=== PATIENT | female | born 1930 | race American Indian/Alaskan Native ===

== ENCOUNTER 2017-03-25 10:43 | Day surgery (SDC) | payer MEDICARE ==
[~2017-03-25 10:43] MED LIST: NACL 0.9% 1000 ML 1,000 ML ONE
--- NOTE | 2017-03-25 11:27 | Anesthesia Consultation ---
Anesthesia Consult and Med Hx Date of service: 03/25/17 - Airway Anesthetic Teeth Evaluation: Poor - Pulmonary Exam CTA: Yes - Cardiac Exam Cardiac Exam: RRR - Pre-Operative Health Status ASA Pre-Surgery Classification: ASA4 Proposed Anesthetic Plan: MAC - Pre-Anesthesia Comment Pre-Anesthesia Comments: Only a few remaining teeth. None loose per daughter. Airway difficult to evaluate due to patients dementia. - Pulmonary Hx Smoking: No Hx Asthma: No COPD: No Hx Sleep Apnea: No (reports snoring) - Cardiovascular System Hx Hypertension: Yes Hx Coronary Artery Disease: No Hx Heart Attack/AMI: (Pt. denies but has LBBB on EKG from today. ) - Central Nervous System Hx Neuromuscular Disorder: No (AMS/delirium believed secondary to UTI) CVA: Yes Hx Back Pain: Yes Hx Psychiatric Problems: No (AMS/delirium secondary to ?UTI) - Gastrointestinal Hx Ulcer: No (evaluating for hematemesis) - Endocrine Hx Renal Disease: No Hx Liver Disease: No Hx Non-Insulin Dependent Diabetes: No - Hematic Hx Anemia: No - Other Systems Hx Alcohol Use: Yes - Additional Comments Anesthesia Medical History Comments: Medical recorg indicates non stemi in 2015. EF at that time was 35-40
--- NOTE | 2017-03-25 11:28 | Anesthesia Day of Surgery ---
Anesthesia Day of Surgery - Day of Surgery Patient Examined: Yes Patient H&P Reviewed: Yes Patient is NPO: Yes
[2017-03-25] MEDS ORDERED: NACL 0.9% 1000 ML 1,000 ML IV SCH (13:00)
[2017-03-25] MEDS ORDERED: DIPRIVAN 10 MG/ML IV ONE (14:17)
[2017-03-25] MEDS ORDERED: AMIDATE IV ONE (14:17)
[2017-03-25] MEDS ORDERED: ANCEF/STERILE WATER 2 GM/20 ML 2 GM/20 ML SYRINGE IV ONE (14:32)
[2017-03-25] MEDS ORDERED: TRIPLE ANTIBIOTIC TP ONE ×2 (15:03→15:07)
[2017-03-25 16:04] VITALS: BP 175/47
--- NOTE | 2017-03-25 16:11 | Operative Report ---
Operative Report Operative Report: Operative Report: Date of procedure: 10/26/2016 Procedure: Esophagogastroduodenoscopy with percutaneous endoscopic gastrostomy tube placement Attending physician: Casimiro Moody MD Retaining Room Cutter: Casimiro Moody MD Indication: Patient is an 87-year-old female who presented with a history of dementia altered mental status poor oral intake and weight loss. Patient is moderately malnourished. An upper endoscopy is done to place a percutaneous endoscopic gastrostomy tube for enteral feeding and administration of medications. Consent: Informed consent was obtained after advising the patients family regarding nature of this procedure, its indications, potential benefits as well as possible complications including but not limited to bleeding perforation and adverse reaction to medication, infection as well as other cardiopulmonary complications. An informed written and verbal consent was then obtained after due opportunity was provided for questions and answers. Monitoring: Patient was monitored continuously with pulse oximetry and electrocardiographic recordings as well as blood pressure recordings. Vital signs remained stable throughout this procedure with no untoward events. Preoperative assessment: Patient was assessed immediately prior to this procedure for capacity to tolerate monitored anesthesia care and moderate sedation as well as general anesthesia. Patient's ASA classification is 3, Mallampati class is 2, Hyomental distance is 3. Instrument: [email or web address] video endoscope. 20 [place] percutaneous endoscopic gastrostomy tube kit Medications: Propofol given intravenously in divided doses. For details please refer to anesthesia records. Ancef 1 g given intravenously immediately prior to beginning of procedure 1% lidocaine for local infiltration of the skin. Description of procedure: Patient was placed in a supine position after achieving sedation, the endoscope was introduced into the esophagus under direct vision. It was then advanced beyond the esophagus into the stomach and then beyond the stomach into the duodenum and to the second portion of the duodenum. It was subsequently withdrawn with careful inspection of all mucosal surfaces with the following findings. Subsequently, a precise location for the placement of the percutaneous endoscopic gastrostomy tube was identified using direct light transillumination and one-to-one finger indentation. Following this, a 20 [place] percutaneous endoscopic gastrostomy tube was successfully placed using the Ponsky pull-through method. The following endoscopic findings were noted. Findings: Esophagus was normal. There was mild erythema in the gastric antrum. A 20 [place] percutaneous endoscopic gastrostomy tube was successfully placed. The duodenum was normal to the second portion. Impression: Esophagogastroduodenoscopy with successful placement of a 20 [place] percutaneous endoscopic gastrostomy tube. Plan: The tube site is currently at 2.8 cm. It should be cleaned daily with Betadine and peroxide. Triple Antibiotic should be applied daily to the site with dry gauze dressing a for at least 2-3 weeks. The tube site should be carefully inspected daily for any redness or discharge. The tube should be flushed with 100 mL of water every 6 hours. The tube should also be flushed additionally after administration medications or after completing a feeding session. Tube may be used for enteral feeding after 6 hours. The tube however may be used immediately for administration of medications. If the tube is accidentally dislodged, a cerner analyst should be notified immediately. After 6 hours, the tube may be used for enteral feeding. The advice however and recommendation is to begin tube feeding at a slow rate of 30 mL per hour and gradually increase as may be instructed after 8 hours. Residuals from the feeding tube should be checked every 3 hours for at least 24-36 hours. If patient tolerates feeding, his feeding volume should be optimized as may advised by the dietitian. If patient has high residuals, then caution should be used in increasing the feeding rate to avoid aspiration. The head of the bed should be kept at 30 always.
--- NOTE | 2017-03-25 16:12 | Discharge Summary ---
Short Stay Discharge Plan Activity: fall precautions Weight Bearing Status: Non-Weight Bearing Diet: per dietitian instruction, other (Peg tube feedings) Additional Instructions: Post Sedation D/C Instructions When you return home you may resume your regular diet unless otherwise directed. -Go directly home from the hospital and rest quietly. You may resume normal activities tomorrow. -Do NOT drive, return to work, operate any machinery or make any important personal or business decisions today. -Do NOT drink any alcohol or take nerve or sleeping drugs. They add to the effects of the medicine still present in your body. Follow up with: CAPRI ARMENTA MD [Primary Care Provider] - 7 Days
--- NOTE | 2017-03-25 16:49 | Post Anesthesia Evaluation ---
- Post Anesthesia Evaluation Patient Participated: Yes Airway Patent: Yes Stable Respiratory Function: Yes Nausea/Vomiting: No Temp > 96.8F: Yes Pain Manageable: Yes Adequeate Hydration: Yes Anesthesia Complications: No Block Receding Appropriately: Not Applicable Patient on Ventilator: No
[2017-03-25] MEDS ORDERED: WATER FOR IRRIG STERILE IR ONE (17:17)
== END 2017-03-25 10:44 | disposition home or self-care (01) ==
LOC: GIO 10:43
PROVIDERS: ATTEND Internal Medicine Gastroenterology
DX: E44.0 Moderate protein-calorie malnutrition (principal); K31.89 Other diseases of stomach and duodenum; F03.90 Unspecified dementia, unspecified severity, without behavioral disturbance, psychotic disturbance, mood disturbance, and anxiety; F10.21 Alcohol dependence, in remission; I25.2 Old myocardial infarction; I42.9 Cardiomyopathy, unspecified; I48.92 Unspecified atrial flutter; I27.2 Other secondary pulmonary hypertension; K21.9 Gastro-esophageal reflux disease without esophagitis; F32.9 Major depressive disorder, single episode, unspecified; F41.9 Anxiety disorder, unspecified; I11.0 Hypertensive heart disease with heart failure; I50.9 Heart failure, unspecified; I44.7 Left bundle-branch block, unspecified; D64.9 Anemia, unspecified; E78.00 Pure hypercholesterolemia, unspecified; Z86.73 Personal history of transient ischemic attack (TIA), and cerebral infarction without residual deficits; Z79.82 Long term (current) use of aspirin; Z79.899 Other long term (current) drug therapy
CPT/HCPCS: 43246; J0690; J2704; J7030; A6250

== ENCOUNTER 2017-05-12 02:04 | Inpatient (IN) | payer MEDICARE ==
[2017-05-12] MEDS ORDERED: NACL 0.9% 1000 ML 1,000 ML IV ONE ×2 (03:23→05:16)
[2017-05-12] MEDS ORDERED: ZOFRAN IV ONE (03:24)
--- NOTE | 2017-05-12 03:31 | Emergency Department Report ---
ED GI Bleed HPI - General Chief complaint: GI Bleed Stated complaint: VOMITING/AMS Time Seen by Provider: 05/12/17 03:09 Source: EMS Mode of arrival: Stretcher Limitations: Physical Limitation - History of Present Illness Initial comments: Patient is a 87 years old female senior living patient sent for a coffee ground emesis just before arrival to the ER. Patient past medical history include coronary artery disease hemiplegia history of atrial flutter cardiomyopathy. Patient is a DO NOT RESUSCITATE, DO NOT RESUSCITATE is in the patient senior living record. MD complaint: coffee ground emesis Radiation: none - Related Data Home Medications Medication Instructions Recorded Confirmed Last Taken FLUoxetine [PROzac] 20 mg PO QDAY 03/30/14 02/20/15 04/14/14 Oxybutynin [Ditropan] 5 mg PO BID 03/30/14 02/20/15 04/14/14 Sennosides [Senna Lax] 8.6 mg PO DAILY 03/30/14 02/20/15 Unknown clonazePAM [KlonoPIN] 0.5 mg PO BID PRN 03/30/14 02/20/15 04/14/14 Omeprazole [PriLOSEC] 40 mg PO DAILY 04/15/14 02/20/15 04/15/14 Previous Rx's Medication Instructions Recorded Last Taken Type Aspirin EC [Aspirin Enteric Coated 81 mg PO QDAY #30 tablet 04/18/14 Unknown Rx TAB] Simvastatin [Zocor TAB] 10 mg PO QHS #30 tablet 04/18/14 Unknown Rx ISOSORBIDE MONOnitrate [Imdur ER] 60 mg PO QDAY tablet 02/25/15 Unknown Rx Lisinopril [Zestril TAB] 20 mg PO BID #60 tablet 02/25/15 Unknown Rx Simvastatin [Zocor] 5 mg PO QHS #30 tablet 02/25/15 Unknown Rx Allergies Allergy/AdvReac Type Severity Reaction Status Date / Time No Known Allergies Allergy Unverified 03/30/14 08:30 ED Review of Systems ROS: Stated complaint: VOMITING/AMS Other details as noted in HPI Comment: Unobtainable due to pts medical conditions ED Past Medical Hx - Past Medical History Previous Medical History?: Yes Hx Hypertension: Yes Hx Heart Attack/AMI: (NSTEMI) Hx Congestive Heart Failure: Yes (SYSTOLIC) Hx GERD: Yes Hx Liver Disease: No Hx Renal Disease: No Hx Psychiatric Treatment: Yes (alzhiemers) Hx Asthma: No Hx COPD: No Hx Dementia: Yes Additional medical history: alzheimers - Surgical History Past Surgical History?: Yes Additional Surgical History: lumbar Back surgery. g-tube palcement - Social History Smoking Status: Unknown if ever smoked Substance Use Type: None - Medications Home Medications: Home Medications Medication Instructions Recorded Confirmed Last Taken Type FLUoxetine [PROzac] 20 mg PO QDAY 03/30/14 02/20/15 04/14/14 History Oxybutynin [Ditropan] 5 mg PO BID 03/30/14 02/20/15 04/14/14 History Sennosides [Senna Lax] 8.6 mg PO DAILY 03/30/14 02/20/15 Unknown History clonazePAM [KlonoPIN] 0.5 mg PO BID PRN 03/30/14 02/20/15 04/14/14 History Omeprazole [PriLOSEC] 40 mg PO DAILY 04/15/14 02/20/15 04/15/14 History Aspirin EC [Aspirin Enteric Coated 81 mg PO QDAY #30 tablet 04/18/14 02/20/15 Unknown Rx TAB] Simvastatin [Zocor TAB] 10 mg PO QHS #30 tablet 04/18/14 02/20/15 Unknown Rx ISOSORBIDE MONOnitrate [Imdur ER] 60 mg PO QDAY tablet 02/25/15 Unknown Rx Lisinopril [Zestril TAB] 20 mg PO BID #60 tablet 02/25/15 Unknown Rx Simvastatin [Zocor] 5 mg PO QHS #30 tablet 02/25/15 Unknown Rx ED Physical Exam - General Limitations: Physical Limitation General appearance: alert, other (patient is very contracted) - Head Head exam: Present: atraumatic, normocephalic - ENT ENT exam: Present: normal exam, mucous membranes moist - Respiratory Respiratory exam: Present: rales, decreased breath sounds. Absent: respiratory distress, rhonchi - Cardiovascular Cardiovascular Exam: Present: regular rate, normal rhythm, normal heart sounds - GI/Abdominal GI/Abdominal exam: Present: soft. Absent: tenderness, guarding, rebound, rigid , mass, bruit, pulsatile mass - Rectal Rectal exam: Present: normal rectal tone, heme (+) stool, black stool. Absent: fecal impaction, hemorrhoids, mass, tenderness - Extremities Exam Extremities exam: Present: normal inspection - Neurological Exam Neurological exam: Present: alert, other (patient is obtunded) - Skin Skin exam: Present: dry ED Course Vital Signs 05/12/17 02:10 Temperature 98.2 F Pulse Rate 73 Respiratory 11 L Rate Blood Pressure 144/68 O2 Sat by Pulse 95 Oximetry - Reevaluation(s) Reevaluation #1: 05/12/17 04:29 Patient is stable no vomiting in the ER and no rectal bleeding. Reevaluation #2: 05/12/17 04:[address] Chaparrita Tripp, I presented the patient so she agreed to admit to her service ED Medical Decision Making - Lab Data Result diagrams: 05/12/17 03:19 05/12/17 02:52 Critical care attestation.: If time is entered above; I have spent that time in minutes in the direct care of this critically ill patient, excluding procedure time. ED Disposition Clinical Impression: GI bleed Disposition: DC-09 OP ADMIT IP TO THIS HOSP Is pt being admited?: Yes Does the pt Need Aspirin: No Condition: Stable Referrals: PRIMARY CARE, [Primary Care Provider] - 3-5 Days Forms: Accompanied Note
[2017-05-12 04:01] LABS: Basophils % (Auto) 0.3 % (0.0-1.8); Hematocrit 27.5 % (30.3-42.9); Hemoglobin 8.8 gm/dl (10.1-14.3); Mean Corpuscular HGB Conc 32 % (30-34); Mean Corpuscular Hemoglobin 27 pg (28-32); Mean Corpuscular Volume 86 fl (79-97); Platelet Count 213 K/mm3 (140-440); Red Cell Distribution Width 15.2 % (13.2-15.2); White Blood Count 13.1 K/mm3 (4.5-11.0)
[2017-05-12 04:08] LABS: Albumin 3.4 g/dL (3.9-5); Albumin/Globulin Ratio 0.9 %; BUN/Creatinine Ratio 48.46; Bilirubin,Total 2.4 mg/dL (0.1-1.2); Calcium 9.3 mg/dL (8.4-10.2); Chloride 94.7 mmol/L (98-107); Potassium 5.6 mmol/L (3.6-5.0); Total Protein 7.1 g/dL (6.3-8.2)
[2017-05-12 04:12] LABS: INR 2.82 (0.87-1.13)
[2017-05-12 04:13] LABS: Partial Thromboplastin Time 44.9 Sec. (24.2-36.6)
[2017-05-12] MEDS ORDERED: ZOFRAN IV PRN (05:52)
[2017-05-12] MEDS ORDERED: TYLENOL PO PRN (05:52)
--- NOTE | 2017-05-12 05:54 | History and Physical Report ---
History of Present Illness Date of examination: 05/12/17 History of present illness: In [id number] male a history of coronary artery disease, stroke, dementia was sent from the [facility] for evaluation for coffee-ground emesis. Patient nonverbal, unable to give a history, review of systems unobtainable. Review of the labs shows that she has abnormal LFT, coagulopathy. She is not on any anticoagulation PAST MEDICAL HISTORY:coronary artery disease, stroke, dementia PAST SURGICAL HISTORY: Unknown FAMILY HISTORY: Unknown SOCIAL HISTORY:prison resident, No tobacco, alcohol or drug Medications and Allergies Allergies Allergy/AdvReac Type Severity Reaction Status Date / Time No Known Allergies Allergy Unverified 03/30/14 08:30 Home Medications Medication Instructions Recorded Confirmed Last Taken Type FLUoxetine [PROzac] 20 mg FEEDTUBE QDAY 03/30/14 05/12/17 04/14/14 History Sennosides [Senna Lax] 8.6 mg FEEDTUBE DAILY 03/30/14 05/12/17 Unknown History Simvastatin [Zocor] 5 mg PO QHS #30 tablet 02/25/15 05/12/17 Unknown Rx Acetaminophen [Tylenol] 650 mg FEEDTUBE BID PRN 05/12/17 05/12/17 Unknown History Ascorbic Acid [Vitamin C] 500 mg FEEDTUBE BID 05/12/17 05/12/17 Unknown History Aspirin EC [Aspirin Enteric Coated 81 mg FEEDTUBE QDAY 05/12/17 05/12/17 Unknown History TAB] Calcium Carbonate/Vitamin D3 1 each FEEDTUBE DAILY 05/12/17 05/12/17 Unknown History [Calcium 500-Vit D3 200 Tablet] Ferrous Sulfate [Feosol] 325 mg FEEDTUBE QDAY 05/12/17 05/12/17 Unknown History ISOSORBIDE MONOnitrate [Imdur ER] 60 mg FEEDTUBE QDAY 05/12/17 05/12/17 Unknown History Lisinopril [Zestril TAB] 20 mg FEEDTUBE BID 05/12/17 05/12/17 Unknown History Multivitamin Tab W-MINERAL 1 each FEEDTUBE QD 05/12/17 05/12/17 Unknown History [Multiple Vitamin/Mineral (Theragran M)] Ondansetron [Zofran TAB] 4 mg FEEDTUBE BID 05/12/17 05/12/17 Unknown History Pantoprazole [Protonix] 40 mg FEEDTUBE QDAY 05/12/17 05/12/17 Unknown History Polymyxin B Sulf/Trimethoprim 1 drop OU Q3HR 05/12/17 05/12/17 Unknown History [Polytrim Eye Drops 13766ftjgn/0.1%] Simvastatin [Zocor TAB] 10 mg FEEDTUBE QHS 05/12/17 05/12/17 Unknown History Active Meds: Active Medications Piperacillin Sod/Tazobactam Sod (Zosyn/Ns 3.375gm/50ml) 3.375 gm in 50 mls @ 100 mls/hr IV Q6HR CY Sodium Chloride (Nacl 0.9% 1000 Ml) 1,000 mls @ 999 mls/hr IV BOLUS ONE Stop: 05/12/17 06:16 Last Admin: 05/12/17 05:35 Dose: 999 mls/hr Pantoprazole Sodium (Protonix) 40 mg IV DAILY CY Exam - Physical Exam Narrative exam: Gen. appearance: Patient lying in bed in no acute distress HEENT: Normocephalic/atraumatic, pupils equal round reactive to light, extra alkaline movement intact, + scleral icterus, no JVD or thyromegaly or nodule, neck is supple, mucous membrane moist, no erythema or exudate Heart: S1-S2, regular rate and rhythm Lungs: Clear to auscultation bilateral breathing comfortable Abdomen: Positive bowel sounds, nontender, nondistended, no organomegaly Extremities: No edema, cyanosis, clubbing Neuro:: non verbal Skin: No rash, nodules, warm dry - Constitutional Vitals: Temp Pulse Resp BP Pulse Ox 98.2 F 86 29 H 157/80 98 05/12/17 02:10 05/12/17 05:30 05/12/17 05:30 05/12/17 05:30 05/12/17 05:30 Results - Labs CBC & Chem 7: 05/12/17 20:09 05/12/17 02:52 Labs: Abnormal lab results 05/12/17 05/12/17 05/12/17 Range/Units 02:52 02:52 03:19 WBC 13.1 H (4.5-11.0) K/mm3 RBC 3.20 L (3.65-5.03) M/mm3 Hgb 8.8 L (10.1-14.3) gm/dl Hct 27.5 L (30.3-42.9) % MCH 27 L (28-32) pg Lymph % (Auto) 6.2 L (13.4-35.0) % [place] % (Auto) 8.5 H (0.0-7.3) % Lymph # 0.8 L (1.2-5.4) K/mm3 [place] # 1.1 H (0.0-0.8) K/mm3 Seg Neutrophils % 85.0 H (40.0-70.0) % Seg Neutrophils # 11.1 H (1.8-7.7) K/mm3 PT 31.2 H (12.2-14.9) Sec. INR 2.82 H (0.87-1.13) APTT 44.9 H (24.2-36.6) Sec. Potassium 5.6 H (3.6-5.0) mmol/L Chloride 94.7 L (98-107) mmol/L Carbon Dioxide 12 L (22-30) mmol/L BUN 63 H (7-17) mg/dL Creatinine 1.3 H (0.7-1.2) mg/dL Lactic Acid (0.7-2.0) mmol/L Total Bilirubin 2.40 H (0.1-1.2) mg/dL AST 2407 H (5-40) units/L ALT 2215 H (7-56) units/L Alkaline Phosphatase 294 H (35-129) units/L Albumin 3.4 L (3.9-5) g/dL 05/12/17 Range/Units 04:16 WBC (4.5-11.0) K/mm3 RBC (3.65-5.03) M/mm3 Hgb (10.1-14.3) gm/dl Hct (30.3-42.9) % MCH (28-32) pg Lymph % (Auto) (13.4-35.0) % [place] % (Auto) (0.0-7.3) % Lymph # (1.2-5.4) K/mm3 [place] # (0.0-0.8) K/mm3 Seg Neutrophils % (40.0-70.0) % Seg Neutrophils # (1.8-7.7) K/mm3 PT (12.2-14.9) Sec. INR (0.87-1.13) APTT (24.2-36.6) Sec. Potassium (3.6-5.0) mmol/L Chloride (98-107) mmol/L Carbon Dioxide (22-30) mmol/L BUN (7-17) mg/dL Creatinine (0.7-1.2) mg/dL Lactic Acid 9.80 H* (0.7-2.0) mmol/L Total Bilirubin (0.1-1.2) mg/dL AST (5-40) units/L ALT (7-56) units/L Alkaline Phosphatase (35-129) units/L Albumin (3.9-5) g/dL Assessment and Plan Assessment GI bleed Abnormal LFTs Coagulopathy Metabolic acidosis Coronary artery disease History of CVA Dementia Plan Admit to medicine Start IV fluid, Protonix, monitor serial hemoglobin, consult GI check CAT scan of the abdomen and pelvis Transfuse FFP, DVT prophylaxis with SCD
[2017-05-12] MEDS ORDERED: ZOSYN/NS 3.375GM/50ML 3.375 GM/50 ML BAG IV SCH (06:00)
[2017-05-12] MEDS ORDERED: NACL 0.9% 500 ML 500 ML IV ONE (06:22)
[2017-05-12] MEDS: PROTONIX IV SCH (06:45)
--- NOTE | 2017-05-12 06:53 | Cat Scan Report ---
FINAL REPORT EXAM: CT ABDOMEN PELVIS WO CON HISTORY: ab lft , elevated lactate TECHNIQUE: CT images obtained through the Abdomen and Pelvis without contrast. Transaxial,coronal and sagittal reformats are provided. PRIORS: 03/30/2014 FINDINGS: Imaged intrathoracic contents are remarkable for cardiomegaly with bilateral pleural effusions and associated compressive atelectasis. Chronic left renal atrophy and cortical scarring. Nonobstructive renal stones measuring up to 2 millimeters in both collecting systems. No hydronephrosis no stones in the urinary bladder. Multiple pelvic phleboliths. A pessary device is present. There is free fluid in the pelvis and in the right greater than left pericolic gutter. The gallbladder is distended with centrally subtle hyper attenuating material. Streak artifact from the stomach and arms down technique obscure large portions of the abdomen. Examination of hollow enteric and solid organs of the abdomen is compromised by lack of intravenous and enteric contrast. Within these limits, no focal abnormalities seen in the liver. The pancreas is not well visualized. The spleen and adrenal glands are without significant abnormality. Dense stool throughout much of the colon. There is stool distention of the rectum, less significant than seen on 2013 comparison. Perirectal fluid is present. Fluid in the right greater than left pericolic gutter. Stranding adjacent to the ascending colon/cecum seen on coronal images 87-89. A percutaneous gastrostomy tube is present. No pneumoperitoneum. The appendix is not definitely visualized. Hiatal hernia appears similar in size to 03/30/2014. Aorta is normal in caliber with densely scattered atherosclerosis. Extensive degenerative findings throughout the spine. No acute fracture identified. IMPRESSION: Distended gallbladder containing hyperdense material. Please correlate for acute cholecystitis. Consider ultrasound or nuclear medicine hepatobiliary scan follow-up as warranted. Abdominal and pelvic ascites with stranding adjacent to the ascending colon and right lower quadrant small bowel. Differential diagnosis includes infection and ischemia. No pneumoperitoneum. Dense stool throughout the colon with stool distention of the rectum and perirectal fluid/edema may represent stercoral colitis in the proper clinical setting. Cardiomegaly and bilateral pleural effusions. Dr. Bui discussed findings with RONI Barragan at 0538 [employer] WORK[employer] following the examination.
--- NOTE | 2017-05-12 07:02 | Admit Criteria Form ---
Admission Criteria Documentation: GASTROINTESTINAL BLEEDING Clinical Indications for Inpatient Care (Place 'X' for any and all applicable criteria): Ongoing inpatient care may be indicated for gastrointestinal bleeding with ANY ONE of the following (4)(20)(21)(22)(23)(24): [X]I. Active bleeding (eg, fresh voluminous blood in emesis or nasogastric aspirate, or per rectum) [ ]II. Hemodynamic instability [ ]III. Anticoagulation therapy or coagulopathy ((eg, advanced liver disease, irreversible anticoagulation) [ ]IV. Ischemic colitis (22) [ ]V. Endoscopy showing arterial bleeding, adherent clot, nonbleeding visible vessel, varices, flat red spots, ulcer size greater than 2 cm, or portal hypertensive gastropathy [ ]. High-risk low platelet count [ ]VII. Anemia requiring inpatient care as indicated by ANY ONE of the following a)[ ] Cognitive impairment b)[ ] Syncope c)[ ] Heart failure d)[ ] Chest pain e)[ ] Dyspnea f)[ ] Other findings suggesting inadequate perfusion (eg, peripheral or myocardial ischemia, end organ dysfunction) [ ]VIII. High-risk low platelet count [ ]IX. Suspected variceal cause of bleeding as indicated by ANY ONE of the following(27)(28): a)[ ] Known varices b)[ ] Hepatomegaly or splenomegaly c)[ ] Ascites d)[ ] Jaundice or scleral icterus e)[ ] History of liver disease (eg, cirrhosis) f)[ ] Physical findings of portal hypertension (eg, caput [place]) g)[ ] Comorbid disorder indicating risk for portal vein thrombosis (eg , abdominal surgery, sepsis, shock, exchange transfusion, prior umbilical vein catheterization) Extended stay may be needed until ALL of the following are present(20)(38)(47): [ ]a) Hemodynamic stability [ ]b) No evidence of active bleeding (eg, stable Hematocrit) [ ]c) Platelet count, prothrombin time, and partial thromboplastin time acceptable for next level of care [ ]d) Surgical or other acute intervention not needed [ ]e) Oral hydration and diet tolerated The original [facility] content created by Vic Slade has been revised. The portions of the content which have been revised are identified through the use of italic text or in bold, and [facility] has neither reviewed nor approved the modified material. All other unmodified content is copyright [facility]. Please see references footnoted in the original [facility] edition 2016 Admission Criteria Met: Yes
--- NOTE | 2017-05-12 07:15 | XRay Report ---
AP CHEST: HISTORY: Chest pain Compared to 02/19/15. Mild increase in cardiomegaly and pulmonary venous congestion is demonstrated. New small right pleural effusion is suspected. The lungs are generally clear. The bony structures are grossly intact. IMPRESSION: Mild CHF.
[2017-05-12] MEDS ORDERED: NACL 0.9% 500 ML 500 ML IV NR (08:00)
[2017-05-12 08:07] LABS: Hematocrit 25.4 % (30.3-42.9); Hemoglobin 8.1 gm/dl (10.1-14.3)
[2017-05-12 10:32] LABS: Hematocrit 23.8 % (30.3-42.9); Hemoglobin 7.6 gm/dl (10.1-14.3)
--- NOTE | 2017-05-12 10:38 | Gastroenterology Consultation ---
<JENNYFER PEÑA - Last Filed: 05/12/17 10:51> History of Present Illness - Reason for Consult Consult date: 05/12/17 coffee ground emesis Requesting physician: MICHELLE SALAS - History of Present Illness Patient is a 87 y/o female longterm resident who presented for evaluation of coffee-ground emesis. Labs revealed abnormal LFTs and coagulopathy without being on anticoagulation. PMH significant for HTN, CAD, cardiomyopathy, CVA, GERD, and alzheimers. This morning pt resting in bed, noted to be nonverbal and unable to provide history/ROS. Information received via chart review. Scant amount of coffee-ground emesis noted on pillow. Abd soft and non-distended. No known hx of liver disease or ETOH abuse. I Past History Past Medical History: acute MS, CAD, GERD, heart failure, hypertension, stroke, other (alzheimers) Past Surgical History: Other (PEG tube, back surgery) Social history: other (longterm resident) Medications and Allergies Allergies Allergy/AdvReac Type Severity Reaction Status Date / Time No Known Allergies Allergy Unverified 03/30/14 08:30 Home Medications Medication Instructions Recorded Confirmed Last Taken Type FLUoxetine [PROzac] 20 mg FEEDTUBE QDAY 03/30/14 05/12/17 04/14/14 History Sennosides [Senna Lax] 8.6 mg FEEDTUBE DAILY 03/30/14 05/12/17 Unknown History Simvastatin [Zocor] 5 mg PO QHS #30 tablet 02/25/15 05/12/17 Unknown Rx Acetaminophen [Tylenol] 650 mg FEEDTUBE BID PRN 05/12/17 05/12/17 Unknown History Ascorbic Acid [Vitamin C] 500 mg FEEDTUBE BID 05/12/17 05/12/17 Unknown History Aspirin EC [Aspirin Enteric Coated 81 mg FEEDTUBE QDAY 05/12/17 05/12/17 Unknown History TAB] Calcium Carbonate/Vitamin D3 1 each FEEDTUBE DAILY 05/12/17 05/12/17 Unknown History [Calcium 500-Vit D3 200 Tablet] Ferrous Sulfate [Feosol] 325 mg FEEDTUBE QDAY 05/12/17 05/12/17 Unknown History ISOSORBIDE MONOnitrate [Imdur ER] 60 mg FEEDTUBE QDAY 05/12/17 05/12/17 Unknown History Lisinopril [Zestril TAB] 20 mg FEEDTUBE BID 05/12/17 05/12/17 Unknown History Multivitamin Tab W-MINERAL 1 each FEEDTUBE QD 05/12/17 05/12/17 Unknown History [Multiple Vitamin/Mineral (Theragran M)] Ondansetron [Zofran TAB] 4 mg FEEDTUBE BID 05/12/17 05/12/17 Unknown History Pantoprazole [Protonix] 40 mg FEEDTUBE QDAY 05/12/17 05/12/17 Unknown History Polymyxin B Sulf/Trimethoprim 1 drop OU Q3HR 05/12/17 05/12/17 Unknown History [Polytrim Eye Drops 86131yjwbj/0.1%] Simvastatin [Zocor TAB] 10 mg FEEDTUBE QHS 05/12/17 05/12/17 Unknown History Active Meds: Active Medications Acetaminophen (Tylenol) 650 mg PO Q4H PRN PRN Reason: Pain MILD(1-3)/Fever >100.5/DAMON Piperacillin Sod/Tazobactam Sod (Zosyn/Ns 2.25 Gm/50ml) 2.25 gm in 50 mls @ 100 mls/hr IV Q6HR [facility] Sodium Chloride (Nacl 0.9% 500 Ml) 500 mls @ 0 mls/hr IV ONCE NR PRN Reason: As Directed Stop: 05/12/17 12:30 Ondansetron HCl (Zofran) 4 mg IV Q8H PRN PRN Reason: N/V unrelieved by Gurinder Pantoprazole Sodium (Protonix) 40 mg IV DAILY [facility] Last Admin: 05/12/17 06:45 Dose: 40 mg Review of Systems - Review of Systems ROS unobtainable: due to mental status Exam - Constitutional Vital Signs: Temp Pulse Resp BP Pulse Ox 97.6 F 83 24 138/70 90 05/12/17 09:13 05/12/17 09:13 05/12/17 09:13 05/12/17 09:13 05/12/17 09:22 General appearance: no acute distress, other (nonverbal) - Respiratory Respiratory: bilateral: CTA (anterior) - Cardiovascular Rhythm: regular Heart Sounds: Present: S1 & S2 Extremities: No edema Extremity abnormal: other (hemiplegia) - Gastrointestinal General gastrointestinal: Present: soft, non-distended, normal bowel sounds, other (PEG tube ) - Integumentary Integumentary: Present: warm, dry - Psychiatric Psychiatric: other (nonverbal, alzheimers) - Labs CBC & Chem 7: 05/12/17 10:13 05/12/17 02:52 Lab Results: Laboratory Results - last 24 hr 05/12/17 07:45 Hgb 8.1 L Hct 25.4 L Assessment and Plan 1.coffee ground emesis 2.abnormal LFTs 3.coagulopathy -WBC 13.1 -lactic acid 9.8 -afebrile -HGB 8.1-pending transfusion of PRBCs and FFP -pt currently hymodynamically stable -continue to monitor H/H and transfuse as needed -hold blood thinning medications -continue PPI -place PEG tube to LIS -INR 2.82, AST 2407, ALT 2215, T. jonah 2.40, Alk phos 294- etiology unclear- possible obstruction-no known hx of liver disease or ETOH abuse -abd CT revealed distended gallbladder containing hyperdense material- possible acute cholecystitis, abd/pelvic ascites, possible stercoral colitis -will order acute hepatitis panel and abd u/s -pt is noted to be a DNR-given age and co-morbidities she would be at high risk for endoscopic evaluation -no recommendations at this time for an EGD unless overt bleeding develops -further recommendations to follow <NAEEM CRUZ - Last Filed: 05/12/17 11:31> Medications and Allergies Active Meds: Active Medications Acetaminophen (Tylenol) 650 mg PO Q4H PRN PRN Reason: Pain MILD(1-3)/Fever >100.5/DAMON Piperacillin Sod/Tazobactam Sod (Zosyn/Ns 2.25 Gm/50ml) 2.25 gm in 50 mls @ 100 mls/hr IV Q6HR [facility] Sodium Chloride (Nacl 0.9% 500 Ml) 500 mls @ 0 mls/hr IV ONCE NR PRN Reason: As Directed Stop: 05/12/17 12:30 Sodium Chloride (Nacl 0.9% 1000 Ml) 1,000 mls @ 50 mls/hr IV DIRECT [facility] Ondansetron HCl (Zofran) 4 mg IV Q8H PRN PRN Reason: N/V unrelieved by Reglan Pantoprazole Sodium (Protonix) 40 mg IV DAILY [facility] Last Admin: 05/12/17 06:45 Dose: 40 mg Exam - Constitutional Vital Signs: Temp Pulse Resp BP Pulse Ox 97.6 F 83 24 138/70 96 05/12/17 09:13 05/12/17 09:13 05/12/17 09:13 05/12/17 09:13 05/12/17 11:17 - Labs CBC & Chem 7: 05/12/17 10:13 05/12/17 02:52 Lab Results: Laboratory Results - last 24 hr 05/12/17 05/12/17 07:45 10:13 Hgb 8.1 L 7.6 L Hct 25.4 L 23.8 L Assessment and Plan - Patient Problems (1) Elevated liver enzymes Current Visit: Yes Status: Acute Plan to address problem: Hepatitic pattern suggestive of possible ischemic hepatitis. Rule out autoimmune hepatitis, viral hepatitis. The pattern is not obstructive. AYALA and labs ordered as well as f/u labs. (2) Coffee ground emesis Current Visit: No Status: Suspected Plan to address problem: Minor hematemesis, coffee colored. May have more chronic than acute blood loss. GERD would a common etiology in the setting of a bed ridden patient on tube feeding. Supportive care is reasonable given her increased risks of endoscopy and in absence of family discussion as to how much aggressive care is desired given dementia, poor function status, tube dependence, extensive flexion contractures etc.
--- NOTE | 2017-05-12 12:40 | Progress Note ---
Assessment and Plan Assessment and plan: Coffee-ground emesis. Continue to monitor H&H and transfuse as needed. Continue PPI. Patient is currently hemodynamically stable. Transaminitis. Etiology is unknown. Follow-up acute hepatitis panel and abdominal ultrasound. Distended gallbladder. CT scan revealed distended gallbladder containing hypertense material. ? Acute cholecystitis. Continue IV antibiotics. Consider surgery evaluation. However, given her advanced age and comorbidities patient will be high risk and probably not a surgical candidate. Coagulopathy. Patient noted to have INR 2.82. Continue to hold anticoagulation. Disposition. Patient is DO NOT RESUSCITATE according to the documentation from the SNF with what appears to be very poor functional status. Continue DO NOT RESUSCITATE. Attempt to contact the [place] [facility] to see if there is any family History Interval history: No new issues overnight. Patient is confused. Hospitalist Physical - Constitutional Vitals: Temp Pulse Resp BP Pulse Ox 97.6 F 83 24 138/70 96 05/12/17 09:13 05/12/17 09:13 05/12/17 09:13 05/12/17 09:13 05/12/17 11:17 General appearance: Present: no acute distress, well-nourished - EENT Eyes: Present: PERRL, EOM intact ENT: hearing intact, clear oral mucosa, dentition normal - Neck Neck: Present: supple, normal ROM - Respiratory Respiratory effort: normal Respiratory: bilateral: CTA - Cardiovascular Rhythm: regular Heart Sounds: Present: S1 & S2. Absent: gallop, rub - Extremities Extremities: no ischemia, No edema, Full ROM - Abdominal General gastrointestinal: soft, non-tender, non-distended, normal bowel sounds - Integumentary Integumentary: Present: clear, warm, dry - Neurologic Neurologic: CNII-XII intact, moves all extremities Results - Labs CBC & Chem 7: 05/12/17 10:13 05/12/17 02:52 Labs: Laboratory Last Values WBC 13.1 K/mm3 (4.5-11.0) H 05/12/17 03:19 RBC 3.20 M/mm3 (3.65-5.03) L 05/12/17 03:19 Hgb 7.6 gm/dl (10.1-14.3) L 05/12/17 10:13 Hct 23.8 % (30.3-42.9) L 05/12/17 10:13 MCV 86 fl (79-97) 05/12/17 03:19 MCH 27 pg (28-32) L 05/12/17 03:19 MCHC 32 % (30-34) 05/12/17 03:19 RDW 15.2 % (13.2-15.2) 05/12/17 03:19 Plt Count 213 K/mm3 (140-440) 05/12/17 03:19 Lymph % (Auto) 6.2 % (13.4-35.0) L 05/12/17 03:19 [place] % (Auto) 8.5 % (0.0-7.3) H 05/12/17 03:19 Eos % (Auto) 0.0 % (0.0-4.3) 05/12/17 03:19 Baso % (Auto) 0.3 % (0.0-1.8) 05/12/17 03:19 Lymph # 0.8 K/mm3 (1.2-5.4) L 05/12/17 03:19 [place] # 1.1 K/mm3 (0.0-0.8) H 05/12/17 03:19 Eos # 0.0 K/mm3 (0.0-0.4) 05/12/17 03:19 Baso # 0.0 K/mm3 (0.0-0.1) 05/12/17 03:19 Seg Neutrophils % 85.0 % (40.0-70.0) H 05/12/17 03:19 Seg Neutrophils # 11.1 K/mm3 (1.8-7.7) H 05/12/17 03:19 PT 31.2 Sec. (12.2-14.9) H 05/12/17 02:52 INR 2.82 (0.87-1.13) H 05/12/17 02:52 APTT 44.9 Sec. (24.2-36.6) H 05/12/17 02:52 Sodium 141 mmol/L (137-145) 05/12/17 02:52 Potassium 5.6 mmol/L (3.6-5.0) H 05/12/17 02:52 Chloride 94.7 mmol/L (98-107) L 05/12/17 02:52 Carbon Dioxide 12 mmol/L (22-30) L 05/12/17 02:52 Anion Gap 40 mmol/L 05/12/17 02:52 BUN 63 mg/dL (7-17) H 05/12/17 02:52 Creatinine 1.3 mg/dL (0.7-1.2) H 05/12/17 02:52 Estimated GFR 47 ml/min 05/12/17 02:52 BUN/Creatinine Ratio 48.46 % 05/12/17 02:52 Glucose 79 mg/dL (65-100) 05/12/17 02:52 POC Glucose 74 (70-105) 05/12/17 03:30 Lactic Acid 9.80 mmol/L (0.7-2.0) H* 05/12/17 04:16 Calcium 9.3 mg/dL (8.4-10.2) 05/12/17 02:52 Total Bilirubin 2.40 mg/dL (0.1-1.2) H 05/12/17 02:52 AST 2407 units/L (5-40) H 05/12/17 02:52 ALT 2215 units/L (7-56) H 05/12/17 02:52 Alkaline Phosphatase 294 units/L (35-129) H 05/12/17 02:52 Total Protein 7.1 g/dL (6.3-8.2) 05/12/17 02:52 Albumin 3.4 g/dL (3.9-5) L 05/12/17 02:52 Albumin/Globulin Ratio 0.9 % 05/12/17 02:52 Lipase 23 units/L (13-60) 05/12/17 02:52 Blood Type O POSITIVE 05/12/17 03:20 Antibody Screen Negative 05/12/17 03:20 Crossmatch See Detail 05/12/17 03:20
[2017-05-12] MEDS: ZOSYN/NS 2.25 GM/50ML 2.25 GM/50 ML BAG IV SCH (13:38)
[2017-05-12 14:01] LABS: Hematocrit 23.8 % (30.3-42.9); Hemoglobin 7.3 gm/dl (10.1-14.3)
[2017-05-12] MEDS: NACL 0.9% 1000 ML 1,000 ML IV SCH (16:35)
[2017-05-12 20:39] LABS: Hematocrit 27.6 % (30.3-42.9); Hemoglobin 8.9 gm/dl (10.1-14.3)
[2017-05-13] MEDS: ZOSYN/NS 2.25 GM/50ML 2.25 GM/50 ML BAG IV SCH ×5 (00:51→21:03)
--- NOTE | 2017-05-13 01:55 | Consultation ---
HISTORY OF PRESENT ILLNESS: This patient was referred to me by Dr. Jeffrey Peters to see. She is an 87-year-old black female. She was in a shelter. Apparently, she was in this hospital for that shelter about 3 weeks ago. At that point, she was put DNR and again she came today for the same purpose, namely vomiting coffee ground material. She gives a history of the records, coronary artery disease with stroke and dementia for which she was in shelter for evaluation. I could not get any history from her. She is barely talking and she looks demented to me and semiconscious. I could see a gastrostomy tube in the middle of her upper abdomen with some coffee-ground material within the tube itself. I could not pinpoint any of the past medical history and there is no family history. Her H and H when she came were 27.5 and 8.8. Today, it is 23.8 and 7.3. Her INR is 2.82. Her BCP showed an elevated lactic acid and potassium is 5.6. Bilirubin was elevated at 2.4. All the liver enzymes were elevated, the ALT was 2215 and the AST was 2407. As mentioned above, the total bilirubin was 2.4. PHYSICAL EXAMINATION: GENERAL: Showed a very elderly lady. She is barely responsive with the legs in a position, her knees are at the level of her chest. Nothing could be seen. She looked very pale to me and she looked jaundiced to me as well. CHEST: Essentially clear to me. There is some wheezing on both sides. ABDOMEN: Could not assess the abdomen because the thighs were just tight to the abdomen. EXTREMITIES: Showed minimal edema. IMPRESSION AND PLAN: Upper gastrointestinal bleeding, the etiology of which is unknown. I noted that her INR is high at 2.82 and APTT is 44.9. I think at this point we need to just pursue that or just observation may be. We will give her some protamine and check her H and H. JOB# [id number] RENEE/MARILU
[2017-05-13 06:06] LABS: Hematocrit 28.5 % (30.3-42.9); Hemoglobin 9.3 gm/dl (10.1-14.3); Mean Corpuscular HGB Conc 33 % (30-34); Mean Corpuscular Hemoglobin 28 pg (28-32); Mean Corpuscular Volume 85 fl (79-97); Platelet Count 141 K/mm3 (140-440); Red Blood Count 3.35 M/mm3 (3.65-5.03); Red Cell Distribution Width 15.3 % (13.2-15.2); White Blood Count 11.5 K/mm3 (4.5-11.0)
[2017-05-13 06:18] LABS: BUN/Creatinine Ratio 54.11; Calcium 8.9 mg/dL (8.4-10.2); Chloride 102.2 mmol/L (98-107); Potassium 4.7 mmol/L (3.6-5.0)
[2017-05-13 07:46] LABS: Blastocytes % (Manual) 0 %
[2017-05-13 07:47] LABS: Anisocytosis 1+; Basophils % (Manual) 0 % (0.0-1.8); Diff Status Complete; Eosinophils % (Manual) 0 % (0.0-4.3)
[2017-05-13 07:48] LABS: Platelet Estimate Cons
--- NOTE | 2017-05-13 09:01 | Ultrasound Report ---
ULTRASOUND ABDOMEN COMPLETE: Technique: Transabdominal ultrasound with color Doppler interrogation. History: Elevated liver function tests. Findings: Compared to the noncontrast CT abdomen and pelvis performed the same day. The liver is mildly enlarged. This appears to represent congestive hepatomegaly. No focal liver lesion or surface nodularity. The gallbladder appears partially contracted. No evidence for shadowing gallstones, wall thickening or surrounding fluid. The CBD is normal caliber. The visualized portions of the pancreas including the head and proximal body are within normal limits. The left kidney is atrophic measuring 6.5 cm in length. The right kidney is normal size measuring 9.5 cm. Renal echotexture is increased consistent with chronic renal parenchymal disease. A few tiny calyceal stones are suspected in the left kidney. No hydronephrosis. The spleen and aorta are within normal limits. No aneurysmal dilatation is noted. No ascites. Moderate bilateral pleural effusions are partially imaged. IMPRESSION: Enlarged liver most likely representing congestive hepatomegaly. Atrophic left kidney containing nonobstructing calyceal stones. Chronic renal parenchymal disease. Moderate bilateral pleural effusions.
[2017-05-13] MEDS: PROTONIX IV SCH (09:49)
--- NOTE | 2017-05-13 11:02 | Gastroenterology Progress Note ---
<JENNYFER PEÑA - Last Filed: 05/13/17 11:06> Assessment and Plan 1.coffee ground emesis 2.abnormal LFTs 3.coagulopathy -HGB 9.3-s/p transfusion of PRBCs and FFP yesterday -continue to monitor H/H and transfuse as needed -hold blood thinning medications -continue PPI -place PEG tube to LIS-scan amount of coffee ground drainage present -elevated LFTs- etiology unclear -AYALA-pending -hepatitis panel results-negative -abd u/s revealed enlarged liver most likely representing congestive hepatomegaly -pt is a DNR with poor functional status -continue supportive care- pt is a poor candidate for an endoscopic evaluation due to increased risks -will follow Subjective Date of service: 05/13/17 Principal diagnosis: coffee-ground emesis Interval history: Patient resting in bed. Nonverbal. Now on NRB. PEG to LIS with scant amount of coffee ground drainage. Objective - Constitutional Vitals: Temp Pulse Resp BP Pulse Ox 97.0 F L 105 H 28 H 152/84 94 05/13/17 03:41 05/13/17 03:41 05/13/17 03:41 05/13/17 03:41 05/13/17 09:15 General appearance: mild distress, other (nonverbal) - Respiratory Respiratory: bilateral: CTA (anterior) - Cardiovascular Rhythm: other (tachycardia) Heart Sounds: Present: S1 & S2 - Extremities Extremity abnormal: other (hemiplegia) - Gastrointestinal General gastrointestinal: Present: soft, non-distended, normal bowel sounds, other (PEG) - Integumentary Integumentary: Present: warm, dry - Neurologic Neurological: disoriented, other - Psychiatric Psychiatric: other (alzheimers) - Labs CBC & Chem 7: 05/13/17 05:18 05/13/17 05:18 Labs: Laboratory Results - last 24 hr 05/12/17 05/12/17 05/13/17 13:42 20:09 05:18 WBC 11.5 H RBC 3.35 L Hgb 7.3 L 8.9 L 9.3 L Hct 23.8 L 27.6 L 28.5 L MCV 85 MCH 28 MCHC 33 RDW 15.3 H Plt Count 141 Add Manual Diff Complete Total Counted 100 Seg Neutrophils % Human Resources Leader Seg Neuts % (Manual) 96.0 H Band Neutrophils % 0 Lymphocytes % (Manual) 2.0 L Reactive Lymphs % (Man) 0 Monocytes % (Manual) 2.0 Eosinophils % (Manual) 0 Basophils % (Manual) 0 Metamyelocytes % 0 Myelocytes % 0 Promyelocytes % 0 Blast Cells % 0 Nucleated RBC % 8.0 H Seg Neutrophils # Man 11.0 H Band Neutrophils # 0.0 Lymphocytes # (Manual) 0.2 L Abs React Lymphs (Man) 0.0 Monocytes # (Manual) 0.2 Eosinophils # (Manual) 0.0 Basophils # (Manual) 0.0 Metamyelocytes # 0.0 Myelocytes # 0.0 Promyelocytes # 0.0 Blast Cells # 0.0 WBC Morphology Not Reportable Hypersegmented Neuts Not Reportable Hyposegmented Neuts Not Reportable Hypogranular Neuts Not Reportable Smudge Cells Not Reportable Toxic Granulation Not Reportable Toxic Vacuolation Not Reportable Dohle Bodies Not Reportable Pelger-Huet Anomaly Not Reportable [place] Rods Not Reportable Platelet Estimate Cons Clumped Platelets Not Reportable Plt Clumps, EDTA Not Reportable Large Platelets Not Reportable Giant Platelets Not Reportable Platelet Satelliting Not Reportable Plt Morphology Comment Not Reportable RBC Morphology Not Reportable Dimorphic RBCs Not Reportable Polychromasia Not Reportable Hypochromasia Not Reportable Poikilocytosis Not Reportable Anisocytosis 1+ Microcytosis Not Reportable Macrocytosis Not Reportable Spherocytes Not Reportable Pappenheimer Bodies Not Reportable Sickle Cells Not Reportable Target Cells Not Reportable Tear Drop Cells Not Reportable Ovalocytes Not Reportable Helmet Cells Not Reportable [place] Bodies Not Reportable [place] Rings Not Reportable Ro Cells Not Reportable Bite Cells Not Reportable Crenated Cell Not Reportable Elliptocytes Not Reportable Acanthocytes (Spur) Not Reportable Rouleaux Not Reportable Hemoglobin C Crystals Not Reportable Schistocytes Not Reportable Malaria parasites Not Reportable Gomez Bodies Not Reportable Hem Pathologist Commnt No Sodium Potassium Chloride Carbon Dioxide Anion Gap BUN Creatinine Estimated GFR BUN/Creatinine Ratio Glucose Calcium Hepatitis A IgM Ab Hep Bs Antigen Hep B Core IgM Ab Hepatitis C Antibody 05/13/17 05/13/17 05:18 05:18 WBC RBC Hgb Hct MCV MCH MCHC RDW Plt Count Add Manual Diff Total Counted Seg Neutrophils % Seg Neuts % (Manual) Band Neutrophils % Lymphocytes % (Manual) Reactive Lymphs % (Man) Monocytes % (Manual) Eosinophils % (Manual) Basophils % (Manual) Metamyelocytes % Myelocytes % Promyelocytes % Blast Cells % Nucleated RBC % Seg Neutrophils # Man Band Neutrophils # Lymphocytes # (Manual) Abs React Lymphs (Man) Monocytes # (Manual) Eosinophils # (Manual) Basophils # (Manual) Metamyelocytes # Myelocytes # Promyelocytes # Blast Cells # WBC Morphology Hypersegmented Neuts Hyposegmented Neuts Hypogranular Neuts Smudge Cells Toxic Granulation Toxic Vacuolation Dohle Bodies Pelger-Huet Anomaly [place] Rods Platelet Estimate Clumped Platelets Plt Clumps, EDTA Large Platelets Giant Platelets Platelet Satelliting Plt Morphology Comment RBC Morphology Dimorphic RBCs Polychromasia Hypochromasia Poikilocytosis Anisocytosis Microcytosis Macrocytosis Spherocytes Pappenheimer Bodies Sickle Cells Target Cells Tear Drop Cells Ovalocytes Helmet Cells [place] Bodies [place] Rings [place] Cells Bite Cells Crenated Cell Elliptocytes Acanthocytes (Spur) Rouleaux Hemoglobin C Crystals Schistocytes Malaria parasites Ogmez Bodies Hem Pathologist Commnt Sodium 147 H Potassium 4.7 Chloride 102.2 Carbon Dioxide 16 L Anion Gap 34 BUN 92 H Creatinine 1.7 H Estimated GFR 35 BUN/Creatinine Ratio 54.11 Glucose 77 Calcium 8.9 Hepatitis A IgM Ab Non-reactive Hep Bs Antigen Non-reactive Hep B Core IgM Ab Non-reactive Hepatitis C Antibody Non-reactive <NAEEM CRUZ - Last Filed: 05/13/17 12:08> Assessment and Plan - Patient Problems (1) Elevated liver enzymes Current Visit: Yes Status: Acute Plan to address problem: I suspect ischemic hepatopathy. CT revealed no focal lesions. (2) Coffee ground emesis Current Visit: No Status: Suspected Plan to address problem: No significant GI blood loss. Conservative care is planned given very high risks for endoscopy and required anesthesia. Supportive transfusions if necessary. Continue PPI and G tube suction overnight. Objective - Constitutional Vitals: Temp Pulse Resp BP Pulse Ox 97.0 F L 105 H 28 H 152/84 94 05/13/17 03:41 05/13/17 03:41 05/13/17 03:41 05/13/17 03:41 05/13/17 09:15 - Labs CBC & Chem 7: 05/13/17 05:18 09/07/17 05:18 Labs: Laboratory Results - last 24 hr 05/12/17 05/12/17 05/13/17 13:42 20:09 05:18 WBC 11.5 H RBC 3.35 L Hgb 7.3 L 8.9 L 9.3 L Hct 23.8 L 27.6 L 28.5 L MCV 85 MCH 28 MCHC 33 RDW 15.3 H Plt Count 141 Add Manual Diff Complete Total Counted 100 Seg Neutrophils % Human Resources Leader Seg Neuts % (Manual) 96.0 H Band Neutrophils % 0 Lymphocytes % (Manual) 2.0 L Reactive Lymphs % (Man) 0 Monocytes % (Manual) 2.0 Eosinophils % (Manual) 0 Basophils % (Manual) 0 Metamyelocytes % 0 Myelocytes % 0 Promyelocytes % 0 Blast Cells % 0 Nucleated RBC % 8.0 H Seg Neutrophils # Man 11.0 H Band Neutrophils # 0.0 Lymphocytes # (Manual) 0.2 L Abs React Lymphs (Man) 0.0 Monocytes # (Manual) 0.2 Eosinophils # (Manual) 0.0 Basophils # (Manual) 0.0 Metamyelocytes # 0.0 Myelocytes # 0.0 Promyelocytes # 0.0 Blast Cells # 0.0 WBC Morphology Not Reportable Hypersegmented Neuts Not Reportable Hyposegmented Neuts Not Reportable Hypogranular Neuts Not Reportable Smudge Cells Not Reportable Toxic Granulation Not Reportable Toxic Vacuolation Not Reportable Dohle Bodies Not Reportable Pelger-Huet Anomaly Not Reportable [place] Rods Not Reportable Platelet Estimate Cons Clumped Platelets Not Reportable Plt Clumps, EDTA Not Reportable Large Platelets Not Reportable Giant Platelets Not Reportable Platelet Satelliting Not Reportable Plt Morphology Comment Not Reportable RBC Morphology Not Reportable Dimorphic RBCs Not Reportable Polychromasia Not Reportable Hypochromasia Not Reportable Poikilocytosis Not Reportable Anisocytosis 1+ Microcytosis Not Reportable Macrocytosis Not Reportable Spherocytes Not Reportable Pappenheimer Bodies Not Reportable Sickle Cells Not Reportable Target Cells Not Reportable Tear Drop Cells Not Reportable Ovalocytes Not Reportable Helmet Cells Not Reportable [place] Bodies Not Reportable [place] Rings Not Reportable [place] Cells Not Reportable Bite Cells Not Reportable Crenated Cell Not Reportable Elliptocytes Not Reportable Acanthocytes (Spur) Not Reportable Rouleaux Not Reportable Hemoglobin C Crystals Not Reportable Schistocytes Not Reportable Malaria parasites Not Reportable Gomez Bodies Not Reportable Hem Pathologist Commnt No Sodium Potassium Chloride Carbon Dioxide Anion Gap BUN Creatinine Estimated GFR BUN/Creatinine Ratio Glucose Calcium Hepatitis A IgM Ab Hep Bs Antigen Hep B Core IgM Ab Hepatitis C Antibody 05/13/17 05/13/17 05:18 05:18 WBC RBC Hgb Hct MCV MCH MCHC RDW Plt Count Add Manual Diff Total Counted Seg Neutrophils % Seg Neuts % (Manual) Band Neutrophils % Lymphocytes % (Manual) Reactive Lymphs % (Man) Monocytes % (Manual) Eosinophils % (Manual) Basophils % (Manual) Metamyelocytes % Myelocytes % Promyelocytes % Blast Cells % Nucleated RBC % Seg Neutrophils # Man Band Neutrophils # Lymphocytes # (Manual) Abs React Lymphs (Man) Monocytes # (Manual) Eosinophils # (Manual) Basophils # (Manual) Metamyelocytes # Myelocytes # Promyelocytes # Blast Cells # WBC Morphology Hypersegmented Neuts Hyposegmented Neuts Hypogranular Neuts Smudge Cells Toxic Granulation Toxic Vacuolation Dohle Bodies Pelger-Huet Anomaly [place] Rods Platelet Estimate Clumped Platelets Plt Clumps, EDTA Large Platelets Giant Platelets Platelet Satelliting Plt Morphology Comment RBC Morphology Dimorphic RBCs Polychromasia Hypochromasia Poikilocytosis Anisocytosis Microcytosis Macrocytosis Spherocytes Pappenheimer Bodies Sickle Cells Target Cells Tear Drop Cells Ovalocytes Helmet Cells [place] Bodies [place] Rings Ro Cells Bite Cells Crenated Cell Elliptocytes Acanthocytes (Spur) Rouleaux Hemoglobin C Crystals Schistocytes Malaria parasites Gomez Bodies Hem Pathologist Commnt Sodium 147 H Potassium 4.7 Chloride 102.2 Carbon Dioxide 16 L Anion Gap 34 BUN 92 H Creatinine 1.7 H Estimated GFR 35 BUN/Creatinine Ratio 54.11 Glucose 77 Calcium 8.9 Hepatitis A IgM Ab Non-reactive Hep Bs Antigen Non-reactive Hep B Core IgM Ab Non-reactive Hepatitis C Antibody Non-reactive
--- NOTE | 2017-05-13 11:26 | Progress Note ---
Assessment and Plan Assessment and plan: Coffee-ground emesis. Continue to monitor H&H and transfuse as needed. Continue PPI. Patient is currently hemodynamically stable. Transaminitis. Etiology is unknown. Acute hepatitis panel is negative and abdominal ultrasound reveals a large liver most likely representing congestive hepatomegaly. Distended gallbladder. CT scan revealed distended gallbladder containing hyperdense material. ? Acute cholecystitis. Continue IV antibiotics. Consider surgery evaluation. However, given her advanced age and comorbidities patient will be high risk and probably not a surgical candidate. Coagulopathy. Patient noted to have INR 2.82. Continue to hold anticoagulation. Patient is status post FFP and PRBCs. ? GPC Bacteremia. Blood cultures are gram-positive cocci in clusters 1/2 bottles.? Contaminant. Await ID and sensitivities. WBC normal and afebrile. Disposition. Patient is DO NOT RESUSCITATE according to the documentation from the SNF with what appears to be very poor functional status. Continue DO NOT RESUSCITATE. Attempt to contact the long-term to see if there is any family. I called the number that is on file but is a wrong number for the son. History Interval history: No new issues overnight. Patient is somnolent with sonorous respirations. Hospitalist Physical - Constitutional Vitals: Temp Pulse Resp BP Pulse Ox 97.0 F L 105 H 28 H 152/84 94 05/13/17 03:41 05/13/17 03:41 05/13/17 03:41 05/13/17 03:41 05/13/17 09:15 General appearance: Present: no acute distress, well-nourished - EENT Eyes: Present: PERRL, EOM intact ENT: hearing intact, clear oral mucosa, dentition normal - Neck Neck: Present: supple, normal ROM - Respiratory Respiratory effort: normal Respiratory: bilateral: CTA - Cardiovascular Rhythm: regular Heart Sounds: Present: S1 & S2. Absent: gallop, rub - Extremities Extremities: no ischemia, No edema, Full ROM - Abdominal General gastrointestinal: soft, non-tender, non-distended, normal bowel sounds - Integumentary Integumentary: Present: clear, warm, dry - Neurologic Neurologic: CNII-XII intact, moves all extremities Results - Labs CBC & Chem 7: 05/13/17 05:18 05/13/17 05:18 Labs: Laboratory Last Values WBC 11.5 K/mm3 (4.5-11.0) H 05/13/17 05:18 RBC 3.35 M/mm3 (3.65-5.03) L 05/13/17 05:18 Hgb 9.3 gm/dl (10.1-14.3) L 05/13/17 05:18 Hct 28.5 % (30.3-42.9) L 05/13/17 05:18 MCV 85 fl (79-97) 05/13/17 05:18 MCH 28 pg (28-32) 05/13/17 05:18 MCHC 33 % (30-34) 05/13/17 05:18 RDW 15.3 % (13.2-15.2) H 05/13/17 05:18 Plt Count 141 K/mm3 (140-440) 05/13/17 05:18 Lymph % (Auto) 6.2 % (13.4-35.0) L 05/12/17 03:19 Power % (Auto) 8.5 % (0.0-7.3) H 05/12/17 03:19 Eos % (Auto) 0.0 % (0.0-4.3) 05/12/17 03:19 Baso % (Auto) 0.3 % (0.0-1.8) 05/12/17 03:19 Lymph # 0.8 K/mm3 (1.2-5.4) L 05/12/17 03:19 Power # 1.1 K/mm3 (0.0-0.8) H 05/12/17 03:19 Eos # 0.0 K/mm3 (0.0-0.4) 05/12/17 03:19 Baso # 0.0 K/mm3 (0.0-0.1) 05/12/17 03:19 Add Manual Diff Complete 05/13/17 05:18 Total Counted 100 05/13/17 05:18 Seg Neutrophils % House Supervisor 05/13/17 05:18 Seg Neuts % (Manual) 96.0 % (40.0-70.0) H 05/13/17 05:18 Band Neutrophils % 0 % 05/13/17 05:18 Lymphocytes % (Manual) 2.0 % (13.4-35.0) L 05/13/17 05:18 Reactive Lymphs % (Man) 0 % 05/13/17 05:18 Monocytes % (Manual) 2.0 % (0.0-7.3) 05/13/17 05:18 Eosinophils % (Manual) 0 % (0.0-4.3) 05/13/17 05:18 Basophils % (Manual) 0 % (0.0-1.8) 05/13/17 05:18 Metamyelocytes % 0 % 05/13/17 05:18 Myelocytes % 0 % 05/13/17 05:18 Promyelocytes % 0 % 05/13/17 05:18 Blast Cells % 0 % 05/13/17 05:18 Nucleated RBC % 8.0 % (0.0-0.9) H 05/13/17 05:18 Seg Neutrophils # 11.1 K/mm3 (1.8-7.7) H 05/12/17 03:19 Seg Neutrophils # Man 11.0 K/mm3 (1.8-7.7) H 05/13/17 05:18 Band Neutrophils # 0.0 K/mm3 05/13/17 05:18 Lymphocytes # (Manual) 0.2 K/mm3 (1.2-5.4) L 05/13/17 05:18 Abs React Lymphs (Man) 0.0 K/mm3 05/13/17 05:18 Monocytes # (Manual) 0.2 K/mm3 (0.0-0.8) 05/13/17 05:18 Eosinophils # (Manual) 0.0 K/mm3 (0.0-0.4) 05/13/17 05:18 Basophils # (Manual) 0.0 K/mm3 (0.0-0.1) 05/13/17 05:18 Metamyelocytes # 0.0 K/mm3 05/13/17 05:18 Myelocytes # 0.0 K/mm3 05/13/17 05:18 Promyelocytes # 0.0 K/mm3 05/13/17 05:18 Blast Cells # 0.0 K/mm3 05/13/17 05:18 WBC Morphology Not Reportable 05/13/17 05:18 Hypersegmented Neuts Not Reportable 05/13/17 05:18 Hyposegmented Neuts Not Reportable 05/13/17 05:18 Hypogranular Neuts Not Reportable 05/13/17 05:18 Smudge Cells Not Reportable 05/13/17 05:18 Toxic Granulation Not Reportable 05/13/17 05:18 Toxic Vacuolation Not Reportable 05/13/17 05:18 Dohle Bodies Not Reportable 05/13/17 05:18 Pelger-Huet Anomaly Not Reportable 05/13/17 05:18 Ladonna Rods Not Reportable 05/13/17 05:18 Platelet Estimate Cons 05/13/17 05:18 Clumped Platelets Not Reportable 05/13/17 05:18 Plt Clumps, EDTA Not Reportable 05/13/17 05:18 Large Platelets Not Reportable 05/13/17 05:18 Giant Platelets Not Reportable 05/13/17 05:18 Platelet Satelliting Not Reportable 05/13/17 05:18 Plt Morphology Comment Not Reportable 05/13/17 05:18 RBC Morphology Not Reportable 05/13/17 05:18 Dimorphic RBCs Not Reportable 05/13/17 05:18 Polychromasia Not Reportable 05/13/17 05:18 Hypochromasia Not Reportable 05/13/17 05:18 Poikilocytosis Not Reportable 05/13/17 05:18 Anisocytosis 1+ 05/13/17 05:18 Microcytosis Not Reportable 05/13/17 05:18 Macrocytosis Not Reportable 05/13/17 05:18 Spherocytes Not Reportable 05/13/17 05:18 Pappenheimer Bodies Not Reportable 05/13/17 05:18 Sickle Cells Not Reportable 05/13/17 05:18 Target Cells Not Reportable 05/13/17 05:18 Tear Drop Cells Not Reportable 05/13/17 05:18 Ovalocytes Not Reportable 05/13/17 05:18 Helmet Cells Not Reportable 05/13/17 05:18 Sigala-[place] Bodies Not Reportable 05/13/17 05:18 [place] Rings Not Reportable 05/13/17 05:18 [place] Cells Not Reportable 05/13/17 05:18 Bite Cells Not Reportable 05/13/17 05:18 Crenated Cell Not Reportable 05/13/17 05:18 Elliptocytes Not Reportable 05/13/17 05:18 Acanthocytes (Spur) Not Reportable 05/13/17 05:18 Rouleaux Not Reportable 05/13/17 05:18 Hemoglobin C Crystals Not Reportable 05/13/17 05:18 Schistocytes Not Reportable 05/13/17 05:18 Malaria parasites Not Reportable 05/13/17 05:18 Gomez Bodies Not Reportable 05/13/17 05:18 Hem Pathologist Commnt No 05/13/17 05:18 PT 31.2 Sec. (12.2-14.9) H 05/12/17 02:52 INR 2.82 (0.87-1.13) H 05/12/17 02:52 APTT 44.9 Sec. (24.2-36.6) H 05/12/17 02:52 Sodium 147 mmol/L (137-145) H 05/13/17 05:18 Potassium 4.7 mmol/L (3.6-5.0) 05/13/17 05:18 Chloride 102.2 mmol/L (98-107) 05/13/17 05:18 Carbon Dioxide 16 mmol/L (22-30) L 05/13/17 05:18 Anion Gap 34 mmol/L 05/13/17 05:18 BUN 92 mg/dL (7-17) H 05/13/17 05:18 Creatinine 1.7 mg/dL (0.7-1.2) H 05/13/17 05:18 Estimated GFR 35 ml/min 05/13/17 05:18 BUN/Creatinine Ratio 54.11 % 05/13/17 05:18 Glucose 77 mg/dL (65-100) 05/13/17 05:18 POC Glucose 74 (70-105) 05/12/17 03:30 Lactic Acid 9.80 mmol/L (0.7-2.0) H* 05/12/17 04:16 Calcium 8.9 mg/dL (8.4-10.2) 05/13/17 05:18 Total Bilirubin 2.40 mg/dL (0.1-1.2) H 05/12/17 02:52 AST 2407 units/L (5-40) H 05/12/17 02:52 ALT 2215 units/L (7-56) H 05/12/17 02:52 Alkaline Phosphatase 294 units/L (35-129) H 05/12/17 02:52 Total Protein 7.1 g/dL (6.3-8.2) 05/12/17 02:52 Albumin 3.4 g/dL (3.9-5) L 05/12/17 02:52 Albumin/Globulin Ratio 0.9 % 05/12/17 02:52 Lipase 23 units/L (13-60) 05/12/17 02:52 Hepatitis A IgM Ab Non-reactive (NonReactive) 05/13/17 05:18 Hep Bs Antigen Non-reactive (Negative) 05/13/17 05:18 Hep B Core IgM Ab Non-reactive (NonReactive) 05/13/17 05:18 Hepatitis C Antibody Non-reactive (NonReactive) 05/13/17 05:18 Blood Type O POSITIVE 05/12/17 03:20 Antibody Screen Negative 05/12/17 03:20 Crossmatch See Detail 05/12/17 03:20
[2017-05-13] MEDS ORDERED: VANCOMYCIN PHARMACY TO DOSE IV SCH (12:00)
[2017-05-13] MEDS ORDERED: VANCOMYCIN/NS 1 GM/250 ML 1 GM/250 ML BAG IV ONE (13:00)
--- NOTE | 2017-05-13 14:28 | Progress Note ---
Subjective Narrative: No change in clinical picture sleepy Hctstable . Pt Is DNR . will cont same . Objective Vital Signs - 12hr 05/13/17 05/13/17 05/13/17 03:36 03:41 09:15 Temperature 97.0 F L Pulse Rate 104 H 105 H Respiratory 28 H Rate Blood Pressure 152/84 [Right] O2 Sat by Pulse 93 97 94 Oximetry 05/13/17 13:12 Temperature 97.0 F L Pulse Rate 107 H Respiratory 20 Rate Blood Pressure 145/83 [Right] O2 Sat by Pulse 99 Oximetry - Labs 05/13/17 05:18 05/13/17 05:18 Diabetes panel 05/13/17 Range/Units 05:18 Sodium 147 H (137-145) mmol/L Potassium 4.7 (3.6-5.0) mmol/L Chloride 102.2 (98-107) mmol/L Carbon Dioxide 16 L (22-30) mmol/L BUN 92 H (7-17) mg/dL Creatinine 1.7 H (0.7-1.2) mg/dL Glucose 77 (65-100) mg/dL Calcium 8.9 (8.4-10.2) mg/dL Calcium panel 05/13/17 Range/Units 05:18 Calcium 8.9 (8.4-10.2) mg/dL Pituitary panel 05/13/17 Range/Units 05:18 Sodium 147 H (137-145) mmol/L Potassium 4.7 (3.6-5.0) mmol/L Chloride 102.2 (98-107) mmol/L Carbon Dioxide 16 L (22-30) mmol/L BUN 92 H (7-17) mg/dL Creatinine 1.7 H (0.7-1.2) mg/dL Glucose 77 (65-100) mg/dL Calcium 8.9 (8.4-10.2) mg/dL Adrenal panel 05/13/17 Range/Units 05:18 Sodium 147 H (137-145) mmol/L Potassium 4.7 (3.6-5.0) mmol/L Chloride 102.2 (98-107) mmol/L Carbon Dioxide 16 L (22-30) mmol/L BUN 92 H (7-17) mg/dL Creatinine 1.7 H (0.7-1.2) mg/dL Glucose 77 (65-100) mg/dL Calcium 8.9 (8.4-10.2) mg/dL
[2017-05-14] MEDS: ZOSYN/NS 2.25 GM/50ML 2.25 GM/50 ML BAG IV SCH ×3 (05:05→21:17)
[2017-05-14] MEDS: NACL 0.9% 1000 ML 1,000 ML IV SCH (05:06)
[2017-05-14 06:09] LABS: Hematocrit 29.3 % (30.3-42.9); Hemoglobin 9.4 gm/dl (10.1-14.3); Mean Corpuscular HGB Conc 32 % (30-34); Mean Corpuscular Hemoglobin 28 pg (28-32); Mean Corpuscular Volume 86 fl (79-97); Platelet Count 200 K/mm3 (140-440); Red Blood Count 3.41 M/mm3 (3.65-5.03); Red Cell Distribution Width 15.4 % (13.2-15.2); White Blood Count 10.7 K/mm3 (4.5-11.0)
[2017-05-14 06:16] LABS: INR 2.82 (0.87-1.13)
[2017-05-14 06:28] LABS: Calcium 8.2 mg/dL (8.4-10.2); Chloride 111.3 mmol/L (98-107); Potassium 4.1 mmol/L (3.6-5.0)
[2017-05-14 06:46] LABS: BUN/Creatinine Ratio 61.42
[2017-05-14 07:51] LABS: Blastocytes % (Manual) 0 %
[2017-05-14 07:52] LABS: Anisocytosis 1+; Basophils % (Manual) 0 % (0.0-1.8); Elliptocytes Few; Eosinophils % (Manual) 0 % (0.0-4.3); Hypochromasia 1+; Ovalocytes Few; Polychromasia 1+
[2017-05-14 07:53] LABS: Diff Status Complete
[2017-05-14] MEDS: PROTONIX IV SCH (10:08)
--- NOTE | 2017-05-14 10:30 | Progress Note ---
Assessment and Plan Assessment and plan: Coffee-ground emesis. Continue to monitor H&H and transfuse as needed. Continue PPI. Patient is currently hemodynamically stable. Transaminitis. Etiology is unknown. Acute hepatitis panel is negative and abdominal ultrasound reveals a large liver most likely representing congestive hepatomegaly. Check echocardiogram. GI following. Distended gallbladder. CT scan revealed distended gallbladder containing hyperdense material. ? Acute cholecystitis. Continue IV antibiotics. Consider surgery evaluation. However, given her advanced age and comorbidities patient will be high risk and probably not a surgical candidate. Coagulopathy. Patient noted to have INR 2.82 on admission and remains elevated. Administered Vitamin K 1. Continue to hold anticoagulation. Patient is status post FFP and PRBCs. ? GPC Bacteremia. Blood cultures are gram-positive cocci in clusters 1/2 bottles. ? Contaminant. Await ID and sensitivities. WBC normal and afebrile. Disposition. Patient is DO NOT RESUSCITATE according to the documentation from the SNF with what appears to be very poor functional status. Continue DO NOT RESUSCITATE. Attempt to contact the half-way to see if there is any family. I called the number that is on file but it is a wrong number for the son. Patient is followed by Dr. Almaguer at the nursing facility. History Interval history: No new issues overnight. Patient is somnolent with sonorous respirations. Hospitalist Physical - Constitutional Vitals: Temp Pulse Resp BP Pulse Ox 100.1 F H 112 H 24 131/65 100 05/14/17 06:01 05/14/17 06:01 05/14/17 06:01 05/14/17 06:01 05/14/17 06:01 General appearance: Present: no acute distress, well-nourished - EENT Eyes: Present: PERRL, EOM intact ENT: hearing intact, clear oral mucosa, dentition normal - Neck Neck: Present: supple, normal ROM - Respiratory Respiratory effort: normal Respiratory: bilateral: CTA - Cardiovascular Rhythm: regular Heart Sounds: Present: S1 & S2. Absent: gallop, rub - Extremities Extremities: no ischemia, No edema, Full ROM - Abdominal General gastrointestinal: soft, non-tender, non-distended, normal bowel sounds - Integumentary Integumentary: Present: clear, warm, dry - Neurologic Neurologic: CNII-XII intact, moves all extremities Results - Labs CBC & Chem 7: 05/14/17 05:20 05/14/17 05:20 Labs: Laboratory Last Values WBC 10.7 K/mm3 (4.5-11.0) 05/14/17 05:20 RBC 3.41 M/mm3 (3.65-5.03) L 05/14/17 05:20 Hgb 9.4 gm/dl (10.1-14.3) L 05/14/17 05:20 Hct 29.3 % (30.3-42.9) L 05/14/17 05:20 MCV 86 fl (79-97) 05/14/17 05:20 MCH 28 pg (28-32) 05/14/17 05:20 MCHC 32 % (30-34) 05/14/17 05:20 RDW 15.4 % (13.2-15.2) H 05/14/17 05:20 Plt Count 200 K/mm3 (140-440) 05/14/17 05:20 Lymph % (Auto) 6.2 % (13.4-35.0) L 05/12/17 03:19 [place] % (Auto) 8.5 % (0.0-7.3) H 05/12/17 03:19 Eos % (Auto) 0.0 % (0.0-4.3) 05/12/17 03:19 Baso % (Auto) 0.3 % (0.0-1.8) 05/12/17 03:19 Lymph # 0.8 K/mm3 (1.2-5.4) L 05/12/17 03:19 [place] # 1.1 K/mm3 (0.0-0.8) H 05/12/17 03:19 Eos # 0.0 K/mm3 (0.0-0.4) 05/12/17 03:19 Baso # 0.0 K/mm3 (0.0-0.1) 05/12/17 03:19 Add Manual Diff Complete 05/14/17 05:20 Total Counted 100 05/14/17 05:20 Seg Neutrophils % Invisible Braces Orthodontist 05/14/17 05:20 Seg Neuts % (Manual) 77.0 % (40.0-70.0) H 05/14/17 05:20 Band Neutrophils % 5.0 % 05/14/17 05:20 Lymphocytes % (Manual) 10.0 % (13.4-35.0) L 05/14/17 05:20 Reactive Lymphs % (Man) 0 % 05/14/17 05:20 Monocytes % (Manual) 8.0 % (0.0-7.3) H 05/14/17 05:20 Eosinophils % (Manual) 0 % (0.0-4.3) 05/14/17 05:20 Basophils % (Manual) 0 % (0.0-1.8) 05/14/17 05:20 Metamyelocytes % 0 % 05/14/17 05:20 Myelocytes % 0 % 05/14/17 05:20 Promyelocytes % 0 % 05/14/17 05:20 Blast Cells % 0 % 05/14/17 05:20 Nucleated RBC % 6.0 % (0.0-0.9) H 05/14/17 05:20 Seg Neutrophils # 11.1 K/mm3 (1.8-7.7) H 05/12/17 03:19 Seg Neutrophils # Man 8.2 K/mm3 (1.8-7.7) H 05/14/17 05:20 Band Neutrophils # 0.5 K/mm3 05/14/17 05:20 Lymphocytes # (Manual) 1.1 K/mm3 (1.2-5.4) L 05/14/17 05:20 Abs React Lymphs (Man) 0.0 K/mm3 05/14/17 05:20 Monocytes # (Manual) 0.9 K/mm3 (0.0-0.8) H 05/14/17 05:20 Eosinophils # (Manual) 0.0 K/mm3 (0.0-0.4) 05/14/17 05:20 Basophils # (Manual) 0.0 K/mm3 (0.0-0.1) 05/14/17 05:20 Metamyelocytes # 0.0 K/mm3 05/14/17 05:20 Myelocytes # 0.0 K/mm3 05/14/17 05:20 Promyelocytes # 0.0 K/mm3 05/14/17 05:20 Blast Cells # 0.0 K/mm3 05/14/17 05:20 WBC Morphology Not Reportable 05/14/17 05:20 Hypersegmented Neuts Not Reportable 05/14/17 05:20 Hyposegmented Neuts Not Reportable 05/14/17 05:20 Hypogranular Neuts Not Reportable 05/14/17 05:20 Smudge Cells Not Reportable 05/14/17 05:20 Toxic Granulation Not Reportable 05/14/17 05:20 Toxic Vacuolation Not Reportable 05/14/17 05:20 Dohle Bodies Not Reportable 05/14/17 05:20 Pelger-Huet Anomaly Not Reportable 05/14/17 05:20 Ladonna Rods Not Reportable 05/14/17 05:20 Platelet Estimate Appears normal 05/14/17 05:20 Clumped Platelets Not Reportable 05/14/17 05:20 Plt Clumps, EDTA Not Reportable 05/14/17 05:20 Large Platelets Not Reportable 05/14/17 05:20 Giant Platelets Not Reportable 05/14/17 05:20 Platelet Satelliting Not Reportable 05/14/17 05:20 Plt Morphology Comment Not Reportable 05/14/17 05:20 RBC Morphology Not Reportable 05/14/17 05:20 Dimorphic RBCs Not Reportable 05/14/17 05:20 Polychromasia 1+ 05/14/17 05:20 Hypochromasia 1+ 05/14/17 05:20 Poikilocytosis Not Reportable 05/14/17 05:20 Anisocytosis 1+ 05/14/17 05:20 Microcytosis Not Reportable 05/14/17 05:20 Macrocytosis Not Reportable 05/14/17 05:20 Spherocytes Not Reportable 05/14/17 05:20 Pappenheimer Bodies Not Reportable 05/14/17 05:20 Sickle Cells Not Reportable 05/14/17 05:20 Target Cells Not Reportable 05/14/17 05:20 Tear Drop Cells Not Reportable 05/14/17 05:20 Ovalocytes Few 05/14/17 05:20 Helmet Cells Not Reportable 05/14/17 05:20 Sigala-[place] Bodies Not Reportable 05/14/17 05:20 [place] Rings Not Reportable 05/14/17 05:20 Ro Cells Not Reportable 05/14/17 05:20 Bite Cells Not Reportable 05/14/17 05:20 Crenated Cell Not Reportable 05/14/17 05:20 Elliptocytes Few 05/14/17 05:20 Acanthocytes (Spur) Not Reportable 05/14/17 05:20 Rouleaux Not Reportable 05/14/17 05:20 Hemoglobin C Crystals Not Reportable 05/14/17 05:20 Schistocytes Not Reportable 05/14/17 05:20 Malaria parasites Not Reportable 05/14/17 05:20 Gomez Bodies Not Reportable 05/14/17 05:20 Hem Pathologist Commnt No 05/14/17 05:20 PT 29.8 Sec. (12.2-14.9) H 05/14/17 05:20 INR 2.82 (0.87-1.13) H 05/14/17 05:20 APTT 44.9 Sec. (24.2-36.6) H 05/12/17 02:52 Sodium 154 mmol/L (137-145) H 05/14/17 05:20 Potassium 4.1 mmol/L (3.6-5.0) 05/14/17 05:20 Chloride 111.3 mmol/L (98-107) H 05/14/17 05:20 Carbon Dioxide 23 mmol/L (22-30) D 05/14/17 05:20 Anion Gap 24 mmol/L 05/14/17 05:20 BUN 129 mg/dL (7-17) H 05/14/17 05:20 Creatinine 2.1 mg/dL (0.7-1.2) H 05/14/17 05:20 Estimated GFR 27 ml/min 05/14/17 05:20 BUN/Creatinine Ratio 61.42 % 05/14/17 05:20 Glucose 137 mg/dL (65-100) H 05/14/17 05:20 POC Glucose 74 (70-105) 05/12/17 03:30 Lactic Acid 9.80 mmol/L (0.7-2.0) H* 05/12/17 04:16 Calcium 8.2 mg/dL (8.4-10.2) L 05/14/17 05:20 Total Bilirubin 2.40 mg/dL (0.1-1.2) H 05/12/17 02:52 AST 2407 units/L (5-40) H 05/12/17 02:52 ALT 2215 units/L (7-56) H 05/12/17 02:52 Alkaline Phosphatase 294 units/L (35-129) H 05/12/17 02:52 Total Protein 7.1 g/dL (6.3-8.2) 05/12/17 02:52 Albumin 3.4 g/dL (3.9-5) L 05/12/17 02:52 Albumin/Globulin Ratio 0.9 % 05/12/17 02:52 Lipase 23 units/L (13-60) 05/12/17 02:52 Hepatitis A IgM Ab Non-reactive (NonReactive) 05/13/17 05:18 Hep Bs Antigen Non-reactive (Negative) 05/13/17 05:18 Hep B Core IgM Ab Non-reactive (NonReactive) 05/13/17 05:18 Hepatitis C Antibody Non-reactive (NonReactive) 05/13/17 05:18 Blood Type O POSITIVE 05/12/17 03:20 Antibody Screen Negative 05/12/17 03:20 Crossmatch See Detail 05/12/17 03:20
[2017-05-14] MEDS ORDERED: VITAMIN K (ADULT ONLY) SUB-Q ONE ×2 (11:00→19:00)
--- NOTE | 2017-05-14 18:36 | Gastroenterology Progress Note ---
Assessment and Plan - Patient Problems (1) Elevated liver enzymes Current Visit: Yes Status: Acute Plan to address problem: Probable shock liver. (2) Coffee ground emesis Current Visit: No Status: Suspected Plan to address problem: No further bleeding. Would restart tube feedings. (3) Dementia Current Visit: No Status: Chronic Qualifiers: Dementia type: D Alzheimer's disease onset: A Dementia behavioral disturbance: D Plan to address problem: Advanced dementia. Care is likely futile. Has DNR status. Not certain whether medical team has reached family. I will s/o at this point and f/u at your request Subjective Date of service: 05/14/17 Principal diagnosis: coffee-ground emesis Interval history: The patient is non verbal Objective - Constitutional Vitals: Temp Pulse Resp BP Pulse Ox 100.1 F H 118 H 24 131/65 100 05/14/17 06:01 05/14/17 11:38 05/14/17 06:01 05/14/17 06:01 05/14/17 11:38 General appearance: mild distress, other (lying motionless in bed ) - Respiratory Respiratory effort: normal Respiratory: bilateral: CTA - Cardiovascular Rhythm: regular - Gastrointestinal General gastrointestinal: Present: soft, non-tender, non-distended, normal bowel sounds - Musculoskeletal Musculoskeletal: other (bilateral flexion contractures. Patient is fixed in the position) - Neurologic Neurological: other (not responsive to verbal command) - Labs CBC & Chem 7: 05/14/17 05:20 05/14/17 05:20 Labs: Laboratory Results - last 24 hr 05/14/17 05/14/17 05/14/17 05:20 05:20 05:20 WBC 10.7 RBC 3.41 L Hgb 9.4 L Hct 29.3 L MCV 86 MCH 28 MCHC 32 RDW 15.4 H Plt Count 200 Add Manual Diff Complete Total Counted 100 Seg Neutrophils % Photovoltaic Installer Seg Neuts % (Manual) 77.0 H Band Neutrophils % 5.0 Lymphocytes % (Manual) 10.0 L Reactive Lymphs % (Man) 0 Monocytes % (Manual) 8.0 H Eosinophils % (Manual) 0 Basophils % (Manual) 0 Metamyelocytes % 0 Myelocytes % 0 Promyelocytes % 0 Blast Cells % 0 Nucleated RBC % 6.0 H Seg Neutrophils # Man 8.2 H Band Neutrophils # 0.5 Lymphocytes # (Manual) 1.1 L Abs React Lymphs (Man) 0.0 Monocytes # (Manual) 0.9 H Eosinophils # (Manual) 0.0 Basophils # (Manual) 0.0 Metamyelocytes # 0.0 Myelocytes # 0.0 Promyelocytes # 0.0 Blast Cells # 0.0 WBC Morphology Not Reportable Hypersegmented Neuts Not Reportable Hyposegmented Neuts Not Reportable Hypogranular Neuts Not Reportable Smudge Cells Not Reportable Toxic Granulation Not Reportable Toxic Vacuolation Not Reportable Dohle Bodies Not Reportable Pelger-Huet Anomaly Not Reportable Lad[place] Rods Not Reportable Platelet Estimate Appears normal Clumped Platelets Not Reportable Plt Clumps, EDTA Not Reportable Large Platelets Not Reportable Giant Platelets Not Reportable Platelet Satelliting Not Reportable Plt Morphology Comment Not Reportable RBC Morphology Not Reportable Dimorphic RBCs Not Reportable Polychromasia 1+ Hypochromasia 1+ Poikilocytosis Not Reportable Anisocytosis 1+ Microcytosis Not Reportable Macrocytosis Not Reportable Spherocytes Not Reportable Pappenheimer Bodies Not Reportable Sickle Cells Not Reportable Target Cells Not Reportable Tear Drop Cells Not Reportable Ovalocytes Few Helmet Cells Not Reportable Sigala-[place] Bodies Not Reportable [place] Rings Not Reportable Ro Cells Not Reportable Bite Cells Not Reportable Crenated Cell Not Reportable Elliptocytes Few Acanthocytes (Spur) Not Reportable Rouleaux Not Reportable Hemoglobin C Crystals Not Reportable Schistocytes Not Reportable Malaria parasites Not Reportable [place] Bodies Not Reportable Hem Pathologist Commnt No PT 29.8 H INR 2.82 H Sodium 154 H Potassium 4.1 Chloride 111.3 H Carbon Dioxide 23 D Anion Gap 24 BUN 129 H Creatinine 2.1 H Estimated GFR 27 BUN/Creatinine Ratio 61.42 Glucose 137 H Calcium 8.2 L
--- NOTE | 2017-05-14 21:22 | Progress Note ---
Subjective Narrative: no evidence of bleeding ,clinical picture unchanged ,Pt DNR , will see PRN , Objective Vital Signs - 12hr 05/14/17 05/14/17 05/14/17 10:00 11:38 20:54 Temperature 98.7 F Pulse Rate 118 H 123 H Respiratory 18 Rate Blood Pressure 142/75 O2 Sat by Pulse 100 100 100 Oximetry - Labs 05/14/17 05:20 05/14/17 05:20 Diabetes panel 05/14/17 Range/Units 05:20 Sodium 154 H (137-145) mmol/L Potassium 4.1 (3.6-5.0) mmol/L Chloride 111.3 H (98-107) mmol/L Carbon Dioxide 23 D (22-30) mmol/L BUN 129 H (7-17) mg/dL Creatinine 2.1 H (0.7-1.2) mg/dL Glucose 137 H (65-100) mg/dL Calcium 8.2 L (8.4-10.2) mg/dL Calcium panel 05/14/17 Range/Units 05:20 Calcium 8.2 L (8.4-10.2) mg/dL Pituitary panel 05/14/17 Range/Units 05:20 Sodium 154 H (137-145) mmol/L Potassium 4.1 (3.6-5.0) mmol/L Chloride 111.3 H (98-107) mmol/L Carbon Dioxide 23 D (22-30) mmol/L BUN 129 H (7-17) mg/dL Creatinine 2.1 H (0.7-1.2) mg/dL Glucose 137 H (65-100) mg/dL Calcium 8.2 L (8.4-10.2) mg/dL Adrenal panel 05/14/17 Range/Units 05:20 Sodium 154 H (137-145) mmol/L Potassium 4.1 (3.6-5.0) mmol/L Chloride 111.3 H (98-107) mmol/L Carbon Dioxide 23 D (22-30) mmol/L BUN 129 H (7-17) mg/dL Creatinine 2.1 H (0.7-1.2) mg/dL Glucose 137 H (65-100) mg/dL Calcium 8.2 L (8.4-10.2) mg/dL
[2017-05-15 04:47] LABS: Hematocrit 28.9 % (30.3-42.9); Hemoglobin 9.3 gm/dl (10.1-14.3); Mean Corpuscular HGB Conc 32 % (30-34); Mean Corpuscular Hemoglobin 28 pg (28-32); Mean Corpuscular Volume 87 fl (79-97); Platelet Count 190 K/mm3 (140-440); Red Blood Count 3.31 M/mm3 (3.65-5.03); Red Cell Distribution Width 15.7 % (13.2-15.2); White Blood Count 10.7 K/mm3 (4.5-11.0)
[2017-05-15 04:56] LABS: INR 2.28 (0.87-1.13)
[2017-05-15 05:01] LABS: Calcium 8.4 mg/dL (8.4-10.2); Chloride 119.2 mmol/L (98-107); Potassium 3.5 mmol/L (3.6-5.0)
[2017-05-15] MEDS: ZOSYN/NS 2.25 GM/50ML 2.25 GM/50 ML BAG IV SCH ×3 (05:08→21:20)
[2017-05-15] MEDS: NACL 0.9% 1000 ML 1,000 ML IV SCH ×2 (05:08→21:23)
[2017-05-15 05:13] LABS: BUN/Creatinine Ratio 73.88
[2017-05-15 06:02] LABS: Anisocytosis 1+; Basophils % (Manual) 0 % (0.0-1.8); Blastocytes % (Manual) 0 %; Diff Status Complete; Eosinophils % (Manual) 0 % (0.0-4.3); Hypochromasia 1+; Platelet Estimate Consistent w Auto; Polychromasia 1+
[2017-05-15] MEDS ORDERED: VANCOMYCIN/NS 1 GM/250 ML 1 GM/250 ML BAG IV ONE (10:00)
[2017-05-15] MEDS: PROTONIX IV SCH (10:35)
--- NOTE | 2017-05-15 13:23 | Progress Note ---
Assessment and Plan - Patient Problems (1) Bacteremia Current Visit: Yes Status: Acute Plan to address problem: Patient with bacteremia we'll continue to treat with current antibiotics. Patient prognosis is extremely poor. DO NOT RESUSCITATE will discharge with hospice services. (2) Elevated liver enzymes Current Visit: Yes Status: Acute Plan to address problem: Transaminases are decreasing will not be too aggressive secondary to patient's extremely poor prognosis. (3) GI bleed Current Visit: Yes Status: Acute Qualifiers: GI bleed type/associated pathology: G Gastritis type: G Plan to address problem: Patient not a candidate for any surgical options. We'll suggest hospice services at this time. Await follow-up discussion with family. (4) Acute systolic heart failure Current Visit: No Status: Acute Plan to address problem: Patient barely well compensated. (5) FTT (failure to thrive) in adult Current Visit: No Status: Acute (6) Dementia Current Visit: No Status: Chronic Qualifiers: Dementia type: D Alzheimer's disease onset: A Dementia behavioral disturbance: D (7) Coffee ground emesis Current Visit: No Status: Suspected (8) Acute renal failure Current Visit: Yes Status: Acute Qualifiers: Acute renal failure type: A History Interval history: Patient remains nonverbal at baseline patient is a DO NOT RESUSCITATE contracted. Further evidence of bleeding. Hospitalist Physical - Constitutional Vitals: Temp Pulse Resp BP Pulse Ox 97.9 F 104 H 20 109/52 15 L 05/15/17 07:00 05/15/17 09:11 05/15/17 10:00 05/15/17 07:00 05/15/17 11:30 General appearance: Present: no acute distress, well-nourished - EENT ENT: other (poor dentition) - Neck Neck: Present: supple ( mouth closed.), normal ROM - Respiratory Respiratory effort: normal Respiratory: bilateral: CTA, negative: diminished - Cardiovascular Rhythm: regular (respiratory effort) Heart Sounds: Present: S1 & S2 - Extremities Extremities: no ischemia, pulses intact, No edema Extremity abnormal: other (infected tenderness) Peripheral Pulses: abnormal - Abdominal General gastrointestinal: other (PEG tube feedings.) - Psychiatric Psychiatric: other (his dementia was nonverbal) - Neurologic Neurologic: focal deficits Results - Labs CBC & Chem 7: 05/16/17 05:06 05/16/17 05:07 Labs: Laboratory Last Values WBC 10.7 K/mm3 (4.5-11.0) 05/15/17 04:23 RBC 3.31 M/mm3 (3.65-5.03) L 05/15/17 04:23 Hgb 9.3 gm/dl (10.1-14.3) L 05/15/17 04:23 Hct 28.9 % (30.3-42.9) L 05/15/17 04:23 MCV 87 fl (79-97) 05/15/17 04:23 MCH 28 pg (28-32) 05/15/17 04:23 MCHC 32 % (30-34) 05/15/17 04:23 RDW 15.7 % (13.2-15.2) H 05/15/17 04:23 Plt Count 190 K/mm3 (140-440) 05/15/17 04:23 Lymph % (Auto) 6.2 % (13.4-35.0) L 05/12/17 03:19 Carver % (Auto) 8.5 % (0.0-7.3) H 05/12/17 03:19 Eos % (Auto) 0.0 % (0.0-4.3) 05/12/17 03:19 Baso % (Auto) 0.3 % (0.0-1.8) 05/12/17 03:19 Lymph # 0.8 K/mm3 (1.2-5.4) L 05/12/17 03:19 Carver # 1.1 K/mm3 (0.0-0.8) H 05/12/17 03:19 Eos # 0.0 K/mm3 (0.0-0.4) 05/12/17 03:19 Baso # 0.0 K/mm3 (0.0-0.1) 05/12/17 03:19 Add Manual Diff Complete 05/15/17 04:23 Total Counted 100 05/15/17 04:23 Seg Neutrophils % Chucking Machine Set Up Operator 05/15/17 04:23 Seg Neuts % (Manual) 86.0 % (40.0-70.0) H 05/15/17 04:23 Band Neutrophils % 6.0 % 05/15/17 04:23 Lymphocytes % (Manual) 5.0 % (13.4-35.0) L 05/15/17 04:23 Reactive Lymphs % (Man) 0 % 05/15/17 04:23 Monocytes % (Manual) 3.0 % (0.0-7.3) 05/15/17 04:23 Eosinophils % (Manual) 0 % (0.0-4.3) 05/15/17 04:23 Basophils % (Manual) 0 % (0.0-1.8) 05/15/17 04:23 Metamyelocytes % 0 % 05/15/17 04:23 Myelocytes % 0 % 05/15/17 04:23 Promyelocytes % 0 % 05/15/17 04:23 Blast Cells % 0 % 05/15/17 04:23 Nucleated RBC % 1.0 % (0.0-0.9) H 05/15/17 04:23 Seg Neutrophils # 11.1 K/mm3 (1.8-7.7) H 05/12/17 03:19 Seg Neutrophils # Man 9.2 K/mm3 (1.8-7.7) H 05/15/17 04:23 Band Neutrophils # 0.6 K/mm3 05/15/17 04:23 Lymphocytes # (Manual) 0.5 K/mm3 (1.2-5.4) L 05/15/17 04:23 Abs React Lymphs (Man) 0.0 K/mm3 05/15/17 04:23 Monocytes # (Manual) 0.3 K/mm3 (0.0-0.8) 05/15/17 04:23 Eosinophils # (Manual) 0.0 K/mm3 (0.0-0.4) 05/15/17 04:23 Basophils # (Manual) 0.0 K/mm3 (0.0-0.1) 05/15/17 04:23 Metamyelocytes # 0.0 K/mm3 05/15/17 04:23 Myelocytes # 0.0 K/mm3 05/15/17 04:23 Promyelocytes # 0.0 K/mm3 05/15/17 04:23 Blast Cells # 0.0 K/mm3 05/15/17 04:23 WBC Morphology Not Reportable 05/15/17 04:23 Hypersegmented Neuts Not Reportable 05/15/17 04:23 Hyposegmented Neuts Not Reportable 05/15/17 04:23 Hypogranular Neuts Not Reportable 05/15/17 04:23 Smudge Cells Not Reportable 05/15/17 04:23 Toxic Granulation Not Reportable 05/15/17 04:23 Toxic Vacuolation Not Reportable 05/15/17 04:23 Dohle Bodies Not Reportable 05/15/17 04:23 Pelger-Huet Anomaly Not Reportable 05/15/17 04:23 Ladonna Rods Not Reportable 05/15/17 04:23 Platelet Estimate Consistent w auto 05/15/17 04:23 Clumped Platelets Not Reportable 05/15/17 04:23 Plt Clumps, EDTA Not Reportable 05/15/17 04:23 Large Platelets Not Reportable 05/15/17 04:23 Giant Platelets Not Reportable 05/15/17 04:23 Platelet Satelliting Not Reportable 05/15/17 04:23 Plt Morphology Comment Not Reportable 05/15/17 04:23 RBC Morphology Not Reportable 05/15/17 04:23 Dimorphic RBCs Not Reportable 05/15/17 04:23 Polychromasia 1+ 05/15/17 04:23 Hypochromasia 1+ 05/15/17 04:23 Poikilocytosis Not Reportable 05/15/17 04:23 Anisocytosis 1+ 05/15/17 04:23 Microcytosis Not Reportable 05/15/17 04:23 Macrocytosis Not Reportable 05/15/17 04:23 Spherocytes Not Reportable 05/15/17 04:23 Pappenheimer Bodies Not Reportable 05/15/17 04:23 Sickle Cells Not Reportable 05/15/17 04:23 Target Cells Not Reportable 05/15/17 04:23 Tear Drop Cells Not Reportable 05/15/17 04:23 Ovalocytes Not Reportable 05/15/17 04:23 Helmet Cells Not Reportable 05/15/17 04:23 [place] Bodies Not Reportable 05/15/17 04:23 [place] Rings Not Reportable 05/15/17 04:23 [place] Cells Not Reportable 05/15/17 04:23 Bite Cells Not Reportable 05/15/17 04:23 Crenated Cell Not Reportable 05/15/17 04:23 Elliptocytes Not Reportable 05/15/17 04:23 Acanthocytes (Spur) Not Reportable 05/15/17 04:23 Rouleaux Not Reportable 05/15/17 04:23 Hemoglobin C Crystals Not Reportable 05/15/17 04:23 Schistocytes Not Reportable 05/15/17 04:23 Malaria parasites Not Reportable 05/15/17 04:23 [place] Bodies Not Reportable 05/15/17 04:23 Hem Pathologist Commnt No 05/15/17 04:23 PT 25.2 Sec. (12.2-14.9) H 05/15/17 04:23 INR 2.28 (0.87-1.13) H 05/15/17 04:23 APTT 44.9 Sec. (24.2-36.6) H 05/12/17 02:52 Sodium 158 mmol/L (137-145) H 05/15/17 04:23 Potassium 3.5 mmol/L (3.6-5.0) L 05/15/17 04:23 Chloride 119.2 mmol/L (98-107) H 05/15/17 04:23 Carbon Dioxide 22 mmol/L (22-30) 05/15/17 04:23 Anion Gap 20 mmol/L 05/15/17 04:23 BUN 133 mg/dL (7-17) H 05/15/17 04:23 Creatinine 1.8 mg/dL (0.7-1.2) H 05/15/17 04:23 Estimated GFR 32 ml/min 05/15/17 04:23 BUN/Creatinine Ratio 73.88 % 05/15/17 04:23 Glucose 149 mg/dL (65-100) H 05/15/17 04:23 POC Glucose 74 (70-105) 05/12/17 03:30 Lactic Acid 9.80 mmol/L (0.7-2.0) H* 05/12/17 04:16 Calcium 8.4 mg/dL (8.4-10.2) 05/15/17 04:23 Total Bilirubin 2.40 mg/dL (0.1-1.2) H 05/12/17 02:52 AST 2407 units/L (5-40) H 05/12/17 02:52 ALT 2215 units/L (7-56) H 05/12/17 02:52 Alkaline Phosphatase 294 units/L (35-129) H 05/12/17 02:52 Total Protein 7.1 g/dL (6.3-8.2) 05/12/17 02:52 Albumin 3.4 g/dL (3.9-5) L 05/12/17 02:52 Albumin/Globulin Ratio 0.9 % 05/12/17 02:52 Lipase 23 units/L (13-60) 05/12/17 02:52 Random Vancomycin 7.1 ug/mL (0-40.0) 05/15/17 04:23 Hepatitis A IgM Ab Non-reactive (NonReactive) 05/13/17 05:18 Hep Bs Antigen Non-reactive (Negative) 05/13/17 05:18 Hep B Core IgM Ab Non-reactive (NonReactive) 05/13/17 05:18 Hepatitis C Antibody Non-reactive (NonReactive) 05/13/17 05:18 Blood Type O POSITIVE 05/12/17 03:20 Antibody Screen Negative 05/12/17 03:20 Crossmatch See Detail 05/12/17 03:20
[2017-05-15] MEDS ORDERED: NACL 0.9% 1000 ML 1,000 ML IV SCH (14:00)
[2017-05-16] MEDS: ZOSYN/NS 2.25 GM/50ML 2.25 GM/50 ML BAG IV SCH ×3 (05:29→21:25)
[2017-05-16 06:26] LABS: Hematocrit 27.8 % (30.3-42.9); Hemoglobin 8.4 gm/dl (10.1-14.3); Mean Corpuscular HGB Conc 30 % (30-34); Mean Corpuscular Hemoglobin 27 pg (28-32); Mean Corpuscular Volume 89 fl (79-97); Platelet Count 182 K/mm3 (140-440); Red Blood Count 3.11 M/mm3 (3.65-5.03); Red Cell Distribution Width 16.3 % (13.2-15.2); White Blood Count 13.9 K/mm3 (4.5-11.0)
[2017-05-16 06:37] LABS: INR 1.85 (0.87-1.13)
[2017-05-16 07:11] LABS: Calcium 8.6 mg/dL (8.4-10.2); Chloride 124.6 mmol/L (98-107); Potassium 3.4 mmol/L (3.6-5.0)
[2017-05-16 07:33] LABS: BUN/Creatinine Ratio 74.44
[2017-05-16 07:57] LABS: Anisocytosis 1+; Basophils % (Manual) 0 % (0.0-1.8); Blastocytes % (Manual) 0 %; Hypochromasia 1+; Ovalocytes Few; Polychromasia 1+; Tear Drop Cells Rare
[2017-05-16 07:58] LABS: Diff Status Complete; Large Platelets Few
[2017-05-16] MEDS: PROTONIX IV SCH (10:16)
--- NOTE | 2017-05-16 16:35 | Discharge Summary ---
Providers - Providers Date of Admission: 05/12/17 05:52 Date of discharge: 05/16/17 Attending physician: TARYN LAGUNAS 05/12/17 06:47 Consult to Physician [CONS] Urgent Consulting Provider: EILEEN FRITZ Reason For Exam: distended gall bladder, fluid in abdomen Place consult to:: surgery Notified:: Yola TAMAYO Phone number called:: Was contact made?: Yes If yes, spoke with:: Shilpa-Office Time called:: 09:26 05/12/17 09:17 Consult to Wound/ET Nurse [CONS] Routine Reason For Exam: wound eval Primary care physician: NOZZLE OPERATOR Hospitalization Condition: Poor Pertinent studies: Abdominal CT which showed cholelithiasis. Hospital course: Patient 87 years old and stays dementia nonverbal contracted DO NOT RESUSCITATE with fast of 7D and a PPS of 30 visits with acute decline as evidenced by decreased by mouth intake weight loss and GI bleed. Patient had what appeared to be a gastrointestinal hemorrhage. Had no further evidence of bleeding throughout hospital stay. Patient was born and evaluated by GI was found to have cholelithiasis surgical evaluation which I agree patient is not a candidate for any surgical intervention. Patient also developed metabolic acidosis hypernatremia and renal failure all multifactorial. Treated with free water and aggressive IV volume hydration. Patient did not have a very good response to this secondary to advanced age and decreased renal function. Patient also had abnormal liver function tests was thought to be secondary to shock liver. Disposition: DC-50 TO HOSPICE (HOME) - Discharge Diagnoses (1) Bacteremia Status: Acute Comment: Bacteremia will continue treatment with antibiotics changed to by mouth antibiotics. [facility]. (2) Elevated liver enzymes Status: Acute Comment: Secondary to shock liver from dehydration infection. (3) GI bleed Status: Acute Qualifiers: GI bleed type/associated pathology: G Gastritis type: G Comment: Patient not a candidate for any surgical candidate. Not a candidate for colonoscopy. No further bleeding therefore would not be overly aggressive at this time. Spoke with son will discharge back with hospice services. (4) Acute systolic heart failure Status: Acute (5) FTT (failure to thrive) in adult Status: Acute Comment: Advanced dementia patient's fast 7D PPD S 30 not eating or drinking well. Prognosis is extremely poor. (6) Dementia Status: Chronic Qualifiers: Dementia type: D Alzheimer's disease onset: A Dementia behavioral disturbance: D Comment: Advanced dementia. Not a candidate for any dementia medications. (7) Coffee ground emesis Status: Suspected Comment: We'll not workup as mentioned previously. (8) Acute renal failure Status: Acute Qualifiers: Acute renal failure type: A Comment: Acute on chronic renal failure. Most likely secondary to prerenal azotemia. Patient transitioning to get up. Extremely poor prognosis. Core Measure Documentation - Palliative Care Palliative Care/ Comfort Measures: Hospice Care - Core Measures Any of the following diagnoses?: none Exam - Constitutional Vitals: Temp Pulse Resp BP Pulse Ox 98.4 F 90 20 92/41 100 05/16/17 08:00 05/16/17 12:09 05/16/17 10:00 05/16/17 08:00 05/16/17 10:00 General appearance: Present: mild distress - EENT Eyes: Present: PERRL, EOM intact ENT: hearing decreased, poor dentition, edentulous - Neck Neck: Present: normal ROM, carotid bruits. Absent: masses or JVD, cervical LAD - Respiratory Respiratory effort: other (poor inspiratory effort decreased breath sounds) Respiratory: bilateral: diminished - Cardiovascular Rhythm: other Heart Sounds: Present: S1 & S2 (faint), systolic murmur - Extremities Extremities: No edema, normal temperature, normal color Extremity abnormal: pulses diminished, tenderness Peripheral Pulses: abnormal - Abdominal General gastrointestinal: Present: soft, non-tender - Integumentary Integumentary: Present: clear, warm, dry - Musculoskeletal Musculoskeletal: generalized weakness, other (severely contracted lower extremities temporal wasting increased bony prominences) - Psychiatric Psychiatric: other (nonverbal bedbound) Plan Activity: no restrictions Weight Bearing Status: Non-Weight Bearing Diet: other (PEG tube feedings) Special Instructions: home hospice Follow up with: PRIMARY CAREMD [Primary Care Provider] - 3-5 Days Forms: Accompanied Note Prescriptions: Aspirin EC [Aspirin Enteric Coated TAB] 81 mg FEEDTUBE QDAY #30 tablet Calcium Carbonate/Vitamin D3 [Calcium 500-Vit D3 200 Tablet] 1 each FEEDTUBE DAILY #30 tablet
[2017-05-16] MEDS: NACL 0.9% 1000 ML 1,000 ML IV SCH (20:47)
[2017-05-17] MEDS: ZOSYN/NS 2.25 GM/50ML 2.25 GM/50 ML BAG IV SCH (05:27)
[2017-05-17 06:01] LABS: Hematocrit 24.6 % (30.3-42.9); Hemoglobin 7.9 gm/dl (10.1-14.3); Mean Corpuscular HGB Conc 32 % (30-34); Mean Corpuscular Hemoglobin 28 pg (28-32); Mean Corpuscular Volume 87 fl (79-97); Platelet Count 155 K/mm3 (140-440); Red Blood Count 2.82 M/mm3 (3.65-5.03); White Blood Count 12.5 K/mm3 (4.5-11.0)
[2017-05-17 06:12] LABS: INR 1.64 (0.87-1.13)
[2017-05-17 06:22] LABS: Calcium 8.5 mg/dL (8.4-10.2); Chloride 129.2 mmol/L (98-107); Potassium 3.2 mmol/L (3.6-5.0)
[2017-05-17 06:37] LABS: BUN/Creatinine Ratio 68.94
[2017-05-17] MEDS ORDERED: D5/0.45NS 1,000 ML IV SCH (07:00)
[2017-05-17 07:02] LABS: Blastocytes % (Manual) 0 %; Eosinophils % (Manual) 0 % (0.0-4.3)
[2017-05-17 07:03] LABS: Anisocytosis 1+; Elliptocytes 1+; Hypochromasia 1+; Polychromasia Few; Stomatocytes Few; Target Cells Few
[2017-05-17 07:04] LABS: Diff Status Complete
[2017-05-17] MEDS: PROTONIX IV SCH (10:36)
[2017-05-17] MEDS ORDERED: VANCOMYCIN 750 MG in NACL 0.9% 250ML 250 ML IV ONE (11:00)
--- NOTE | 2017-05-17 13:23 | Event Note ---
Date: 05/17/17 Patient was not discharge secondary requiring intermediate placement over the weekend.
--- NOTE | 2017-05-17 13:28 | Discharge Summary ---
Providers - Providers Date of Admission: 05/12/17 05:52 Date of discharge: 05/17/17 Attending physician: MARY LYONS 05/12/17 06:47 Consult to Physician [CONS] Urgent Consulting Provider: EILEEN FRITZ Reason For Exam: distended gall bladder, fluid in abdomen Place consult to:: surgery Notified:: Yola TAMAYO Phone number called:: Was contact made?: Yes If yes, spoke with:: Shilpa-Office Time called:: 09:26 05/12/17 09:17 Consult to Wound/ET Nurse [CONS] Routine Reason For Exam: wound eval 05/17/17 11:03 Consult to Dietitian/Nutrition [CONS] Stat Physician Instructions: Reason For Exam: Reason for Consult: tube feed Primary care physician: PATIENT CASE MANAGER Hospitalization Condition: Poor Pertinent studies: Abdominal pelvis CT which showed cholelithiasis. Distended gallbladder abdominal pelvic ascites bilateral pleural effusions. Gallbladder ultrasound also showed cholelithiasis as well. Hospital course: Patient end-stage dementia bed bound nonverbal presented with GI bleed. Patient was evaluated by both GI and surgery and was not a candidate for colonoscopy as well as laparoscopic cholecystectomy secondary to poor functional status. Patient was placed to suction as well. Patient renal function also became worse most likely secondary to prerenal azotemia. Patient also had hyponatremia. This end-stage dementia as well as underlying coronary artery disease which patient is also not a candidate for any invasive testing as well. Spoke with family and requests comfort measures only Will send patient back to alf facility with hospice services. Disposition: DC-50 TO HOSPICE (HOME) - Discharge Diagnoses (1) Bacteremia Status: Acute Comment: Bacteremia will continue treatment with antibiotics changed to by mouth antibiotics. Home alf facility with hospice. (2) Elevated liver enzymes Status: Acute Comment: Secondary to shock liver from dehydration infection. (3) GI bleed Status: Acute Qualifiers: GI bleed type/associated pathology: G Gastritis type: G Comment: Patient not a candidate for any surgical candidate. Not a candidate for colonoscopy. No further bleeding therefore would not be overly aggressive at this time. Spoke with son will discharge back with hospice services. (4) Acute systolic heart failure Status: Acute (5) FTT (failure to thrive) in adult Status: Acute Comment: Advanced dementia patient's fast 7D PPD S 30 not eating or drinking well. Prognosis is extremely poor. (6) Dementia Status: Chronic Qualifiers: Dementia type: D Alzheimer's disease onset: A Dementia behavioral disturbance: D Comment: Advanced dementia. Not a candidate for any dementia medications. Home hospice (7) Coffee ground emesis Status: Suspected Comment: We'll not workup as mentioned previously. (8) Acute renal failure Status: Acute Qualifiers: Acute renal failure type: A Comment: Acute on chronic renal failure. Most likely secondary to prerenal azotemia. Patient transitioning to get up. Extremely poor prognosis. will still give IVF and free water and follow up of sodium. Core Measure Documentation - Palliative Care Palliative Care/ Comfort Measures: Hospice Care - Core Measures Any of the following diagnoses?: none Exam - Constitutional Vitals: Temp Pulse Resp BP Pulse Ox 98.3 F 102 H 2 L 106/58 100 05/17/17 01:25 05/17/17 08:22 05/17/17 01:25 05/17/17 01:05/17/17 08:22 General appearance: Present: cachectic, other - EENT ENT: other (temporal waisting poor dentention) - Respiratory Respiratory: bilateral: CTA - Cardiovascular Rhythm: regular Heart Sounds: Present: S1 & S2 - Extremities Extremity abnormal: other (profoubnd contracrture and increase bony prominences) - Abdominal General gastrointestinal: Present: other (schphoid and peg) - Integumentary Integumentary: Present: clear - Musculoskeletal Musculoskeletal: generalized weakness, other (decubitus ulcers stage 2 and 3 hip ) - Psychiatric Psychiatric: other (non verbal and unresposive) Plan Activity: other (bed bound) Weight Bearing Status: Non-Weight Bearing Diet: per dietitian instruction, other (peg tube feedings.. free water 250 cc every 4 hours) Special Instructions: other (iv fluids d5w at 75 cc per hour) Follow up with: PRIMARY CARE, [Primary Care Provider] - 3-5 Days Forms: Accompanied Note Prescriptions: Calcium Carbonate/Vitamin D3 [Calcium 500-Vit D3 200 Tablet] 1 each FEEDTUBE DAILY #30 tablet D5w/0.45% NaCl [D5/0.45NS] 75 ml IV DIRECT #5 bag
[2017-05-17 13:45] VITALS: BP 97/48
--- NOTE | 2017-05-18 10:10 | Death Summary ---
Summary - Providers Date of service: 05/18/17 Consults: 05/12/17 06:47 Consult to Physician [CONS] Urgent Consulting Provider: EILEEN FRITZ Reason For Exam: distended gall bladder, fluid in abdomen Place consult to:: surgery Notified:: Yola TAMAYO Phone number called:: Was contact made?: Yes If yes, spoke with:: Shilpa-Office Time called:: 09:26 05/12/17 09:17 Consult to Wound/ET Nurse [CONS] Routine Reason For Exam: wound eval 05/17/17 11:03 Consult to Dietitian/Nutrition [CONS] Stat Physician Instructions: Reason For Exam: Reason for Consult: tube feed Attending: TARYN LAGUNAS - summary Date of admission: 05/12/17 05:52 Date of : 05/18/17 Disposition: Patient end-stage dementia bed bound nonverbal presented with GI bleed. Patient was evaluated by both GI and surgery and was not a candidate for colonoscopy as well as laparoscopic cholecystectomy secondary to poor functional status. Patient was placed to suction as well. Patient renal function also became worse most likely secondary to prerenal azotemia. Patient also had hyponatremia. This end-stage dementia as well as underlying coronary artery disease which patient is also not a candidate for any invasive testing as well. Dr. Mason Spoke with family and they requested comfort measures only. Plans were made to send patient back to long-term facility with hospice services. However, the discharge was held due to inclement weather. Patient had a progressive decline over the next 24 hours. On 05/17/17 at approximately 4 AM, the patient was noted to have agonal respirations. Patient continued to decline and . Patient was pronounced by Dr. Tommy Tripp at 0607. summary time 32 minutes.
== END 2017-05-18 06:07 | DRG 377 ==
LOC: ED 02:04 → 4A 05:52
PROVIDERS: ADMIT Internal Medicine; ATTEND Hospitalist
PROC: 30233L1 Transfusion of Nonautologous Fresh Plasma into Peripheral Vein, Percutaneous Approach (ICD-10-PCS; principal; 2017-05-12)
PROC: 30233K1 Transfusion of Nonautologous Frozen Plasma into Peripheral Vein, Percutaneous Approach (ICD-10-PCS; 2017-05-12)
DX: K92.2 Gastrointestinal hemorrhage, unspecified (principal); I50.21 Acute systolic (congestive) heart failure; D68.9 Coagulation defect, unspecified; E87.2 Acidosis; E87.1 Hypo-osmolality and hyponatremia; R78.81 Bacteremia; N17.9 Acute kidney failure, unspecified; I42.9 Cardiomyopathy, unspecified; I13.0 Hypertensive heart and chronic kidney disease with heart failure and stage 1 through stage 4 chronic kidney disease, or unspecified chronic kidney disease; K80.20 Calculus of gallbladder without cholecystitis without obstruction; F03.90 Unspecified dementia, unspecified severity, without behavioral disturbance, psychotic disturbance, mood disturbance, and anxiety; R79.89 Other specified abnormal findings of blood chemistry; R62.7 Adult failure to thrive; N18.9 Chronic kidney disease, unspecified; R74.0 Nonspecific elevation of levels of transaminase and lactic acid dehydrogenase [LDH]; I25.10 Atherosclerotic heart disease of native coronary artery without angina pectoris; K21.9 Gastro-esophageal reflux disease without esophagitis; Z66 Do not resuscitate; Z79.899 Other long term (current) drug therapy; I25.2 Old myocardial infarction; Z86.73 Personal history of transient ischemic attack (TIA), and cerebral infarction without residual deficits
CPT/HCPCS: 36415; 71010; 74176; 76700; 80048; 80053; 80074; 80202; 82140; 82271; 82962; 83690; 85007; 85014; 85018; 85025; 85610; 85730; 86850; 86900; 86901; 86920; 87040; 87076; 87186; 93005; 93010; 94760; 96361; 96374; 96375; C9113; J2405; J2543; J3370; J3430; J7030; J7050; P9016; P9017